=== PATIENT | female | born 1935 | race Caucasian/White ===

== ENCOUNTER 2016-03-13 12:56 | Inpatient (IN) | payer MEDICARE, BC ==
[~2016-03-13] VITALS: Ht 152.4 cm; Wt 58.9 kg
[~2016-03-13 12:56] MED LIST: ALBU8.5H3 INH; AMP500 PO; BUDE6HFA INHALATION; BUSP5TAB20 PO; DILT120C62 PO; KENC1 TOP; METF500T4 PO; METO50TA16 PO; NYST15PO4 TOP; OMEP40CA6 PO; ROSU5TAB5 PO; TIOT18CA INH; TRAZ50TA18 PO; VALS160T20 PO
[2016-03-13 12:59] VITALS: Ht 152.4 cm; Wt 58.9 kg
[2016-03-13] MEDS ORDERED: ASPIRIN 81 MG TAB PO STA (13:15)
[2016-03-13] MEDS ORDERED: METHYLPREDNISOLONE 125 MG INJ IV STA (13:15)
[2016-03-13] MEDS ORDERED: IPRATROPIUM (NEB) 0.5 MG/2.5 ML AMP INH STA (13:15)
[2016-03-13] MEDS ORDERED: FUROSEMIDE 100 MG INJ IV STA (13:15)
[2016-03-13] MEDS ORDERED: ALBUTEROL 0.5% (NEB) 2.5 MG/0.5 ML AMP INH STA (13:15)
[2016-03-13] MEDS ORDERED: FUROSEMIDE 40 MG INJ ONE (13:25)
[2016-03-13 13:33] LABS: BASOPHIL # 0.1 10^3/ul (0.0-0.1); BASOPHILS % 0.7 % (0.0-2.0); EOSINOPHILS # 0.1 10^3/ul (0.0-0.5); EOSINOPHILS % 1.6 % (0.0-7.0); HEMATOCRIT 36.4 % (37.0-47.0); LYMPHOCYTES # 1.6 10^3/ul (0.8-2.9); LYMPHOCYTES % 18.4 % (15.0-51.0); MEAN CORPUSCULAR HEMOGLOBIN 30.8 pg (29.0-33.0); MEAN CORPUSCULAR VOLUME 93.5 fl (82.0-101.0); MEAN PLATELET VOLUME 8.9 fl (7.4-10.4); MONOCYTE # 0.5 10^3/ul (0.3-0.9); MONOCYTES % 5.6 % (0.0-11.0); NEUTROPHIL # 6.2 10^3/ul (1.6-7.5); NEUTROPHILS % 73.7 % (39.0-77.0); PLATELET COUNT 256 10^3/UL (140-440); RED CELL DISTRIBUTION WIDTH 15.9 % (11.5-14.5); UNCORRECTED WBC 8.5 10^3/ul (4.8-10.8); WHITE BLOOD COUNT 8.5 10^3/ul (4.8-10.8)
[2016-03-13 13:37] LABS: CONDITION 1
[2016-03-13 13:38] LABS: LH ANALYZER COMMENTS 1
[2016-03-13 13:55] LABS: INR 0.86; PARTIAL THROMBOPLASTIN TIME 26.8 Sec (25.0-35.0); PROTIME 11.7 Sec (12.2-14.2); PT RATIO 0.9
[2016-03-13 13:56] LABS: ALBUMIN 4.2 g/dl (3.3-4.9)
[2016-03-13 13:57] LABS: CHLORIDE 84 mmol/L (97-110); POTASSIUM 5.2 mmol/L (3.5-5.1); SODIUM 133 mmol/L (135-144)
[2016-03-13 13:59] LABS: ALBUMIN/GLOBULIN RATIO 1.35; ASPARTATE AMINO TRANSFERASE 25 IU/L (15-46); BILIRUBIN,INDIRECT 0.8 mg/dl (0-1.1); BILIRUBIN,TOTAL 0.8 mg/dl (0.2-1.3); BLOOD UREA NITROGEN 15 mg/dl (7-20); CREATININE 0.65 mg/dl (0.44-1.00); TOTAL PROTEIN 7.3 g/dl (6.1-8.1)
[2016-03-13 14:00] LABS: ALANINE AMINOTRANSFERASE 38 IU/L (13-69); ALKALINE PHOSPHATASE 73 IU/L (42-121); CALCIUM 9.2 mg/dl (8.4-10.2); GLUCOSE 131 mg/dl (70-220)
[2016-03-13 14:00] LABS: AADO2 Arterial 56.6 mmHg (7.0-24.0); Allen Test ACCEPTAB; Arterial Base Excess 13.4 mmol/L (-3.0-3); Arterial COHb 0.5 % (0.0-3.0); Arterial Fraction of Oxyhgb 98.4 % (93.0-99.0); Arterial HCO3 42.8 mmol/L (22.0-26.0); Arterial MetHb 0.3 % (0.0-1.5); Arterial Total Hemglobin 13.1 g/dl (12.0-18.0)
[2016-03-13 14:09] LABS: B-TYPE NATRIURETIC PEPTIDE 758 PG/ML (0-450)
[2016-03-13 14:12] LABS: ANION GAP 15 (8-16); CARBON DIOXIDE 39 mmol/L (21-31); TROPONIN-I < 0.012 ng/ml (0.00-0.12)
--- NOTE | 2016-03-13 14:15 | RADRPT ---
PROCEDURE: XR Chest. CLINICAL INDICATION: Shortness of breath. TECHNIQUE: Single frontal view. COMPARISON: 12/14/2015. FINDINGS: The lungs are mildly hyperinflated but otherwise clear. The heart is mildly enlarged. There is calcification in the aorta consistent with atherosclerosis. There is no pleural effusion. There is no pneumothorax. IMPRESSION: 1. Mild hyperinflation. 2. Otherwise clear lungs. 3. Mild cardiomegaly. 4. Atherosclerosis. RPTAT: QQ .Dimitrios Delarosa MD, Date Time Electronically viewed and signed by .Dimitrios Delarosa MD, on 03/13/2016 14:14 .R/
--- NOTE | 2016-03-13 15:57 | ERA ---
ER Documentation Chief Complaint Date/Time DATE: 03/13/16 TIME: 15:51 Chief Complaint Complains of SOB, Hx of Asthma, Back pain and left arm pain HPI Patient comes in complaining of increasing shortness of breath over the last 2- 3 days. She has orthopnea with dyspnea on exertion. Her daughter states that one side of her lungs do not work at all. She has not had any swelling of the extremities. Denies any fever however she has had coughing with congestion. Denies any sputum production sore throat otalgia nausea vomiting or diarrhea. She has had some chest discomfort which she cannot quite describe. She is not oxygen dependent at home. She denies traveling anywhere or sick contacts. ROS All systems reviewed and are negative except as per history of present illness. Medications Home Meds Active Scripts Nystatin* (Nystop*) 15 Gm Powder, 1 APPLIC TOP BID for 7 Days Prov:GREGORIO LI 12/19/15 Triamcinolone Acetonide* (Kenalog*) 0.1%-15GM Cr, 1 APPLIC TOP BID for 7 Days Prov:GREGORIO LI 12/19/15 Albuterol Sulfate* (Proair HFA*) 8.5 Gm Hfa.aer.ad, 2 PUFF INH Q4H Y for WHEEZING AND SOB, #1 INHALER Prov:BRETT VARGAS V. UNDERTAKER HELPER 10/27/15 Tiotropium Aurora* (Spiriva*) 18 Mcg Cap.w.dev, 1 INH INH DAILY for 30 Days Prov:KITTY MORALES UNDERTAKER HELPER 08/02/15 Reported Medications Trazodone Hcl* (Trazodone Hcl*) 50 Mg Tablet, 50 MG PO QHS, #30 TAB 12/14/15 Diltiazem Hcl* (Cartia XT*) 120 Mg Cap.sr.24h, 120 MG PO DAILY, #30 CAP 12/14/15 Metoprolol Succinate* (Toprol XL*) 50 Mg Tab.er.24h, 50 MG PO BID, #30 TAB 12/14/15 Metformin* (Glucophage*) 500 Mg Tab, 500 MG PO WITH BREAKFAST DINNE, #30 TAB 12/14/15 Valsartan* (Diovan*) 160 Mg Tablet, 160 MG PO DAILY, TAB 12/14/15 Buspirone Hcl* (Buspirone Hcl*) 5 Mg Tab, 5 MG PO BID Y for PRN, TAB 12/14/15 Budesonide-Formoterol Fumarate* (Symbicort*) 160-4.5 Hfa.aer.ad, 2 PUFF INHALATION BID, #1 EACH 10/24/15 Rosuvastatin Calcium* (Crestor*) 5 Mg Tablet, 5 MG PO QHS, #30 TAB 06/28/15 Omeprazole* (Omeprazole*) 40 Mg Capsule.dr, 40 MG PO AC BREAKFAST, #30 CAP 06/28/15 Discontinued Scripts Ampicillin* (Ampicillin*) 500 Mg Cap, 500 MG PO TID for 3 Days, CAP Prov:GREGORIO LI 12/19/15 Allergies Allergies: Coded Allergies: No Known Allergy (Unverified , 10/24/15) PMhx/Soc History of Surgery: No Anesthesia Reaction: No Hx Neurological Disorder: No Hx Respiratory Disorders: Yes (asthma,pna) Hx Cardiac Disorders: Yes (htn,high chol) Hx Psychiatric Problems: No Hx Miscellaneous Medical Probl: Yes (hysterectomy, gallbladder, abdominal tumors (benign), asthma) Hx Alcohol Use: No Hx Substance Use: No Hx Tobacco Use: No Smoking Status: Never smoker FmHx I attempted to take the pt off her oxygen but her sats dropped to 74% and she had to be placed back on the oxygen. she has been urinating but refused the beasley so I am unsure how much she has actually diuresed. Family History: No diabetes Physical Exam Vitals Vital Signs Date Time Temp Pulse Resp B/P Pulse Ox O2 Delivery O2 Flow Rate FiO2 03/13/16 13:32 Nasal Cannula 03/13/16 13:27 4.0 03/13/16 13:27 82 20 98 Nasal Cannula 4.0 03/13/16 12:59 98.6 82 20 186/84 94 Physical Exam Const: [] Head: Atraumatic Eyes: Normal Conjunctiva ENT: Normal External Ears, Nose and Mouth. Neck: Full range of motion..~ No meningismus. Resp: Clear to auscultation bilaterally Cardio: Regular rate and rhythm, no murmurs Abd: Soft, non tender, non distended. Normal bowel sounds Skin: No petechiae or rashes Back: No midline or flank tenderness Ext: No cyanosis, or edema Neur: Awake and alert Psych: Normal Mood and Affect Result Diagram: 03/13/16 1320 03/13/16 1320 Results 24 hrs Laboratory Tests Test 03/13/16 13:15 03/13/16 13:20 Arterial Blood HCO3 42.8mmol/L Arterial Blood Base Excess 13.4mmol/L Arterial Blood Oxygen Saturation 99.2mmHG Kleber Test ACCEPTAB Arterial Blood Gas Puncture Site Right Radial Arterial Blood Carboxyhemoglobin 0.5% Arterial Blood Date Drawn 03/13/2016 1:50:26 PM Arterial Blood Methemoglobin 0.3% Arterial Blood pCO2 (Temp correct) 81.3mmhg Arterial Blood pH (Temp corrected) 7.339 Arterial Blood pO2 (Temp corrected) 230.4mmHG Blood Gas A-a O2 Differential 56.6mmHg Blood Gas Critical Value Read Back DR CARLOS Anthony Blood Gas Modality BEBULIZER Blood Gas Notified Time 03/13/2016 2:00:28 PM Blood Gas Notified Whom JLD Blood Gas Specimen Source Blood arterial Blood Gas Temperature 37.0C FiO2 53.0% Oxyhemoglobin Percent 98.4% Total Hemoglobin 13.1g/dl Activated Partial Thromboplast Time 26.8Sec Alanine Aminotransferase (ALT/SGPT) 38IU/L Albumin 4.2g/dl Albumin/Globulin Ratio 1.35 Alkaline Phosphatase 73IU/L Anion Gap 15 Aspartate Amino Transf (AST/SGOT) 25IU/L B-Type Natriuretic Peptide 758PG/ML Basophils # 0.110^3/ul Basophils % 0.7% Blood Morphology Comment Blood Urea Nitrogen 15mg/dl Calcium Level 9.2mg/dl Carbon Dioxide Level 39mmol/L Chloride Level 84mmol/L Creatinine 0.65mg/dl Direct Bilirubin 0.00mg/dl Eosinophils # 0.110^3/ul Eosinophils % 1.6% Globulin 3.10g/dl Glucose Level 131mg/dl Hematocrit 36.4% Hemoglobin 12.0g/dl INR International Normalized Ratio 0.86 Indirect Bilirubin 0.8mg/dl Lactic Acid Level 1.8mmol/L Lymphocytes # 1.610^3/ul Lymphocytes % 18.4% Mean Corpuscular Hemoglobin 30.8pg Mean Corpuscular Hemoglobin Concent 33.0g/dl Mean Corpuscular Volume 93.5fl Mean Platelet Volume 8.9fl Monocytes # 0.510^3/ul Monocytes % 5.6% Neutrophils # 6.210^3/ul Neutrophils % 73.7% Nucleated Red Blood Cells # 0.010^3/ul Nucleated Red Blood Cells % 0.0/100WBC Platelet Count 00675^3/UL Potassium Level 5.2mmol/L Prothrombin Time 11.7Sec Prothrombin Time Ratio 0.9 Red Blood Count 3.9010^6/ul Red Cell Distribution Width 15.9% Sodium Level 133mmol/L Total Bilirubin 0.8mg/dl Total Protein 7.3g/dl Troponin I < 0.012ng/ml White Blood Count 8.510^3/ul Current Medications Medications (Trade) Dose Ordered Sig/Liza Route PRN Reason Start Time Stop Time Status Last Admin Dose Admin Albuterol (Proventil 0.5% (Neb)) 7.5 mg ONCE STAT INH 03/13/16 13:15 03/13/16 13:20 DC 03/13/16 13:27 Ipratropium Aurora (Atrovent 0.02% (Neb)) 1.5 mg ONCE STAT INH 03/13/16 13:15 03/13/16 13:20 DC 03/13/16 13:27 Methylprednisolone Sodium Succinate (Solu-Medrol) 125 mg ONCE STAT IV 03/13/16 13:15 03/13/16 13:20 DC 03/13/16 13:26 Aspirin (Aspirin) 162 mg ONCE STAT PO 03/13/16 13:15 03/13/16 13:20 DC 03/13/16 13:26 Furosemide (Lasix) 80 mg ONCE STAT IV 03/13/16 13:15 03/13/16 13:20 DC 03/13/16 13:24 Furosemide (Lasix) 40 mg STK-MED ONCE .ROUTE 03/13/16 13:25 03/13/16 13:26 DC Ondansetron HCl (Zofran Inj) 4 mg ER BRIDGE PRN IV NAUSEA AND/OR VOMITING 03/13/16 16:30 03/14/16 16:29 Acetaminophen (Tylenol Tab) 650 mg ER BRIDGE PRN PO MILD PAIN/FEVER 03/13/16 16:30 03/14/16 16:29 Departure Diagnosis: Primary Impression: COPD with exacerbation Additional Impressions: CHF exacerbation Qualified Code: I50.9 - Acute on chronic congestive heart failure, unspecified congestive heart failure type Hypoxia Shortness of breath Condition: YONI Glass Mar 13, 2016 15:57
[2016-03-13] MEDS ORDERED: ACETAMINOPHEN 325 MG TAB PO PRN (16:30)
[2016-03-13] MEDS ORDERED: ONDANSETRON 4 MG INJ IV PRN ×2 (16:30→17:30)
[2016-03-13] MEDS: HYDROCODONE/APAP (5/325) TAB PO PRN ×2 (17:27→18:53)
[2016-03-13] MEDS ORDERED: hydrALAzine 20 MG INJ IV PRN (17:30)
[2016-03-13] MEDS ORDERED: BISACODYL (EC) 5 MG TAB PO PRN (17:30)
[2016-03-13] MEDS ORDERED: MAGNESIUM HYDROXIDE 30ML CUP PO PRN (17:30)
[2016-03-13] MEDS ORDERED: morphine 2 MG INJ IV PRN (17:30)
[2016-03-13] MEDS ORDERED: NACL 0.9% 3 ML SYG IV SCH (17:30)
[2016-03-13] MEDS ORDERED: ALBUTEROL/IPRATROPIUM (NEB) 3 ML AMP HHN PRN (17:30)
[2016-03-13] MEDS: CEFTRIAXONE 1 GM/50 ML (PMX) 50 ML IV SCH (17:40)
[2016-03-13] MEDS: AZITHROMYCIN 500MG/NS (PMX) 250 ML IV SCH (18:10)
[2016-03-13] MEDS: METHYLPREDNISOLONE 125 MG INJ IV SCH (18:10)
--- NOTE | 2016-03-13 18:29 | HP ---
DATE OF ADMISSION: 03/13/2016 TIME OF EVALUATION: 1700. REASON FOR ADMISSION: Dyspnea. CONSULTANTS: . Dr. Hollis Greene, pulmonary. HISTORY OF PRESENT ILLNESS: This is an 80-year-old female with past medical history of COPD who uses home oxygen, hypercapnia, paroxysmal atrial fibrillation, essential hypertension, pulmonary hypertension, prediabetes, dyslipidemia as well as abdominal and thoracic aortic aneurysm, who came to the emergency room with chief complaint of shortness of breath that has been going on over the past 2 to 3 days. The patient also verbalized left-sided chest wall pain that is radiating to the left and thoracic spine. She was complaining of orthopnea and dyspnea with minimal exertion. She denied any cough, fevers, or chills. Denied any recent sick contacts or recent travels. The patient denied any nausea, vomiting, abdominal pain, diarrhea, hematuria, dysuria, hematemesis, hematochezia or melena. The patient verbalized that she has been compliant with all her medications at home. Nevertheless, the patient was noticed to have a blood pressure of 186/84 in the emergency room. The patient's ABG that was done on 50% FIO2 showed a pCO2 of 81.3 with a pH of 7.339. The patient's BMP showed minimal hyperkalemia. The patient's chest x- ray showed mild hyperinflation, otherwise clear lungs as well as mild cardiomegaly. The patient was treated with 125 mg IV Solu-Medrol, 80 mg IV Lasix and 162 mg of oral aspirin in the emergency room along with inhaled bronchodilators. PAST MEDICAL HISTORY: COPD, dependent on home oxygen, hypercapnia, paroxysmal atrial fibrillation, essential hypertension, prediabetes, dyslipidemia, pulmonary hypertension, abdominal and thoracic aortic aneurysm. 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 HOME MEDICATIONS: 1. ProAir HFA 2 puffs inhaled q. 4 hours p.r.n. dyspnea. 2. Spiriva 18 mcg capsule 1 inhalation daily. 3. Diltiazem 120 mg p.o. daily. 4. Toprol-XL 50 mg p.o. daily. 5. Crestor 5 mg p.o. at bedtime. 6. Diovan 160 mg p.o. daily. 7. Buspirone 5 mg p.o. b.i.d. p.r.n. anxiety. 8. Trazodone 50 mg p.o. at bedtime. 9. Symbicort 160/4.5 two puffs inhaled b.i.d. 10. Omeprazole 40 mg p.o. before breakfast. 11. Metformin 500 mg p.o. with breakfast and dinner. ALLERGIES: NO KNOWN DRUG ALLERGIES. SOCIAL HISTORY: The patient lives at home with her family. The patient used to be a smoker. As per the patient's family, she quit smoking a few months ago. Denies any use of alcohol or illicit drugs. REVIEW OF SYSTEMS: A 12-point review of systems was negative other than what is mentioned in history of present illness. PHYSICAL EXAMINATION: VITAL SIGNS: Temperature 98.6, pulse rate 82, respiratory rate 20, blood pressure 186/84, oxygen saturation 94% on 4 liters oxygen via nasal cannula. GENERAL: This is an elderly 80-year-old female lying in bed in mild to moderate respiratory distress, doing pursed lip breathing. HEENT: Head normocephalic and atraumatic. Eyes: Anicteric sclerae. Conjunctivae clear. ENT: Nasal septum is midline. Oral mucosa is dry. NECK: Supple. No JVD noticed. RESPIRATORY: Bilaterally diminished breath sounds. Use of accessory muscles of respiration. CARDIAC: Regular rate and rhythm. No obvious murmurs heard. ABDOMEN: Soft, nontender and nondistended. Bowel sounds positive in all 4 quadrants. GENITOURINARY: Deferred. EXTREMITIES: No cyanosis. Clubbing of fingers of the bilateral upper extremities. NEUROLOGIC: The patient is awake, alert and oriented. Cranial nerves are grossly intact. LABORATORY AND DIAGNOSTIC DATA: WBC 8.5, hemoglobin 12.0, hematocrit 36.4, platelet count 256. Sodium 133, potassium 5.2, chloride 84, carbon dioxide 30, anion gap 15, BUN 15, creatinine 0.6, glucose 131. Lactic acid 1.8, calcium 9.2 , AST 25, ALT 30, alkaline phosphatase 73. BNP is 758. Troponin I less than 0.01. Total protein 7.3, albumin 4.2. PT 11.7, INR 0.863, PTT 26.8. Blood gas that was done on 50% FIO2 0.339, pCO2 81.3, pO2 230.4, bicarbonate of 42.8, oxygen saturation 99.2, base excess of 13.4. Chest x-ray: Mild hyperinflation. Otherwise, clear lungs. Mild cardiomegaly. Atherosclerosis . IMPRESSION: This is an 80-year-old female with known history of COPD who uses home O2, who came to the emergency room with chief complaint of worsening dyspnea with evidence of COPD exacerbation and will be admitted here for further treatment and evaluation. ASSESSMENT AND PLAN: 1. Acute on chronic respiratory failure, hypoxic and hypercapnic. Most probably secondary to chronic obstructive pulmonary disease exacerbation. The patient will be provided with adequate inhaled bronchodilators. She will be maintained on supplemental oxygen. Pulmonary consult will be obtained. 2. Chronic obstructive pulmonary disease exacerbation. The patient will be maintained on inhaled bronchodilators. The patient will be started on a tapering dose of IV steroids. She will also be started on empiric antibiotics for any underlying acute tracheobronchitis that might have triggered the patient 's chronic obstructive pulmonary disease exacerbation. As mentioned earlier, pulmonary will follow the patient. 3. Diastolic heart failure, acute on chronic. The patient will be adequately diuresed. The patient will be ruled out for any underlying acute coronary syndrome. 4. Left-sided chest wall pain. Etiology unclear. The patient will be ruled out for any acute coronary syndrome. No 2D echocardiogram will be ordered since the patient had a 2D echocardiogram in December 2015 that showed preserved left ventricular ejection fraction with diastolic dysfunction. 5. Pulmonary hypertension. The patient will be maintained on supplemental oxygen. The patient's pulmonary hypertension could be most probably from chronic hypoxia. 6. Paroxysmal atrial fibrillation. Currently in sinus rhythm. The patient will be maintained on non-dihydropyridine calcium channel blockers. Beta blockers will be avoided because of the patient's underlying bronchospasms. 7. Accelerated hypertension. The patient's home antihypertensives will be resumed. However, beta blockers will be avoided because of underlying bronchospasm. The patient will also be started on p.r.n. antihypertensives for any systolic blood pressure readings greater than 160 mmHg. 8. Thoracic and abdominal aortic aneurysm. The patient's blood pressure will be tightly controlled to avoid any dissection of aneurysm. 9. Pre-diabetes. The patient's metformin will be resumed. Hemoglobin A1c will be obtained to evaluate the blood glucose control over the past few weeks. 10. Dyslipidemia. The patient's statins will be resumed. A fasting lipid panel will be obtained. Plan: The patient will be admitted to inpatient telemetry floor. The patient will be started on a carbohydrate controlled low cholesterol diet. She will be started on DVT prophylaxis and gastrointestinal prophylaxis. The patient will remain a FULL CODE. Activities will be with assist. The rest of the patient's management will be based on the clinical course, the results of the diagnostic studies, and inputs from consultants. Based on the patient's clinical presentation, she most probably requires at least 2 midnights' stay for further management and evaluation of her clinical presentation. The case and management of this patient was fully discussed with Dr. Hastings. Approximately 60 minutes were spent on the history and physical on this patient. KITTY HASTINGS MD AM/NTS Conf#: [id number] DID#: [id number] CC: YONI GONZALEZ MD;*EndCC* MTDD
[2016-03-13] MEDS: metFORMIN 500 MG TAB PO SCH (19:09)
[2016-03-13] MEDS: DILTIAZEM (CD) 120 MG CAP PO SCH (19:42)
[2016-03-13] MEDS: BUSPIRONE 5 MG TAB PO PRN (19:42)
[2016-03-13] MEDS: traZODone 50 MG TAB PO SCH (19:42)
[2016-03-13] MEDS: SALMETEROL/FLUTICASONE 250/50 INHA INH SCH ×2 (19:48→22:31)
[2016-03-13 20:50] LABS: ADD UMIC YES; URINE BILIRUBIN (Dip) NEGATIVE (NEGATIVE); URINE BLOOD (Dip) TRACE (NEGATIVE); URINE COLOR LT. YELLOW (YELLOW); URINE GLUCOSE (Dip) NEGATIVE (NEGATIVE); URINE KETONES (Dip) NEGATIVE (NEGATIVE); URINE LEUKOCYTE ESTERASE (Dip) NEGATIVE (NEGATIVE); URINE NITRITE (Dip) NEGATIVE (NEGATIVE); URINE TOTAL PROTEIN (Dip) NEGATIVE (NEGATIVE); URINE UROBILINOGEN (Dip) 0.2 E.U./dL (0.1-1.0)
[2016-03-13 21:03] LABS: BACTERIA,URINE FEW; SQUAMOUS EPITHELIAL CELL,UR RARE; URINE RBCS 0-2 /HPF (0)
[2016-03-13] MEDS: ALBUTEROL/IPRATROPIUM (NEB) 3 ML AMP HHN SCH (21:42)
[2016-03-13] MEDS: FAMOTIDINE 20 MG TAB PO SCH (22:31)
[2016-03-13] MEDS: ATORVASTATIN 20 MG TAB PO SCH (22:32)
[2016-03-14] MEDS: METHYLPREDNISOLONE 125 MG INJ IV SCH ×5 (02:13→23:41)
[2016-03-14 06:39] LABS: HEMATOCRIT 35.5 % (37.0-47.0); HEMOGLOBIN 11.9 g/dl (12.0-16.0); LYMPHOCYTES # 0.6 10^3/ul (0.8-2.9); MEAN CORPUSCULAR HEMOGLOBIN 31.3 pg (29.0-33.0); MEAN CORPUSCULAR HGB CONC 33.7 g/dl (32.0-37.0); MEAN CORPUSCULAR VOLUME 93.1 fl (82.0-101.0); MEAN PLATELET VOLUME 9.2 fl (7.4-10.4); MONOCYTE # 0.1 10^3/ul (0.3-0.9); MONOCYTES % 1.9 % (0.0-11.0); NEUTROPHIL # 4.4 10^3/ul (1.6-7.5); NEUTROPHILS % 87.1 % (39.0-77.0); PLATELET COUNT 241 10^3/UL (140-440); RED BLOOD COUNT 3.81 10^6/ul (4.20-5.40); RED CELL DISTRIBUTION WIDTH 15.4 % (11.5-14.5)
[2016-03-14 06:47] LABS: CONDITION 1; LH ANALYZER COMMENTS 1
[2016-03-14 06:52] LABS: ALBUMIN 4.3 g/dl (3.3-4.9)
[2016-03-14 06:53] LABS: POTASSIUM 4.3 mmol/L (3.5-5.1)
[2016-03-14 06:55] LABS: ALBUMIN/GLOBULIN RATIO 1.43; BILIRUBIN,INDIRECT 0.7 mg/dl (0-1.1); BILIRUBIN,TOTAL 0.7 mg/dl (0.2-1.3); CREATININE 0.73 mg/dl (0.44-1.00); TOTAL PROTEIN 7.3 g/dl (6.1-8.1)
[2016-03-14 06:56] LABS: CALCIUM 9.2 mg/dl (8.4-10.2)
[2016-03-14 07:25] LABS: CHOL/HDL RATIO 3.5 RATIO; MAGNESIUM 1.5 mg/dl (1.7-2.5); PHOSPHORUS 3.7 mg/dl (2.5-4.9)
[2016-03-14 07:39] LABS: TROPONIN-I 0.013 ng/ml (0.00-0.12)
[2016-03-14 07:56] LABS: THYROID STIMULATING HORMONE 0.332 MIU/L (0.465-4.680)
[2016-03-14] MEDS: metFORMIN 500 MG TAB PO SCH ×2 (08:21→17:42)
[2016-03-14] MEDS: SALMETEROL/FLUTICASONE 250/50 INHA INH SCH ×3 (09:00→21:38)
[2016-03-14] MEDS: FUROSEMIDE 20 MG INJ IV SCH (09:07)
[2016-03-14] MEDS: VALSARTAN 160 MG TAB PO SCH (09:08)
[2016-03-14] MEDS: FAMOTIDINE 20 MG TAB PO SCH (09:10)
[2016-03-14] MEDS: ENOXAPARIN 40 MG/0.4 ML SYG SC SCH (09:11)
[2016-03-14] MEDS: ALBUTEROL/IPRATROPIUM (NEB) 3 ML AMP HHN SCH ×2 (09:49→12:06)
[2016-03-14] MEDS ORDERED: LORAZEPAM 2 MG INJ IV ONE (10:00)
[2016-03-14 12:31] VITALS: BP 147/78; PULSE 107; RESP 18
[2016-03-14] MEDS: HYDROCODONE/APAP (5/325) TAB PO PRN (13:23)
[2016-03-14] MEDS ORDERED: MAGNESIUM SULFATE 3 GM in SOD CHLORIDE 0.9% 100 ML IVPB ONE (14:00)
--- NOTE | 2016-03-14 14:08 | PN ---
Date/Time of Note Date/Time of Note DATE: 03/14/16 TIME: 14:07 Assessment/Plan VTE Prophylaxis VTE Prophylaxis Intervention: LMWH Lines/Catheters IV [facility]from [facility] [place] Assessment/Plan Chief Complaint/Hosp Course 1. Acute on chronic respiratory failure, hypoxic and hypercapnic, most probably secondary to chronic obstructive pulmonary disease exacerbation. The patient will be provided inhaled bronchodilators. She will be maintained on supplemental oxygen. Pulmonary evaluation pending. 2. Chronic obstructive pulmonary disease exacerbation. The patient will be maintained on inhaled bronchodilators. The patient will be maintained on tapering dose of IV steroids. Continue empiric antibiotics for any underlying acute tracheobronchitis. 3. Diastolic heart failure, acute on chronic. The patient will be adequately diuresed. Troponins 2 negative. 4. Left-sided chest wall pain. Etiology unclear. Troponins 2 negative. Continue analgesics. 5. Pulmonary hypertension. The patient will be maintained on supplemental oxygen. 6. Paroxysmal atrial fibrillation. Currently in sinus rhythm. The patient will be maintained on non-dihydropyridine calcium channel blockers. Beta blockers will be avoided because of the patient's underlying bronchospasms . 7. Accelerated hypertension. The patient will be continued on routine antihypertensives. However, beta blockers will be avoided because of underlying bronchospasm. The patient will also be maintained on p.r.n. antihypertensives for any systolic blood pressure readings greater than 160 mmHg. 8. Thoracic and abdominal aortic aneurysm. The patient's blood pressure will be tightly controlled to avoid any dissection of aneurysm. 9. Pre-diabetes. Currently hemoglobin A1c 5.2. The patient will be maintained on metformin. 11. Dyslipidemia. Continue statins. Fasting lipid panel optimal. 12. Hypomagnesemia. Replete. 13. Fluids, electrolytes, and nutrition. Carbohydrate controlled, low- cholesterol diet. 14. DVT prophylaxis. Subcutaneous Lovenox. 15. Gastrointestinal prophylaxis. Histamine 2 receptor blockers. 16. Plan. Continue antibiotics. Continue inhaled bronchodilators. Continue tapering dose of steroids. Replete magnesium. Case discussed with Dr. Hastings. Problems: Subjective 24 Hr Interval Summary Free Text/Dictation Complains of left chest wall and left shoulder pain. Exam/Review of Systems Vital Signs Vitals Vital Signs Date Time Temp Pulse Resp B/P Pulse Ox O2 Delivery O2 Flow Rate FiO2 03/14/16 13:09 Nasal Cannula 2.0 03/14/16 12:31 98.1 107 18 147/78 93 03/13/16 21:40 28 Exam GENERAL: This is an elderly 80-year-old female lying in bed in mild to moderate respiratory distress, doing pursed lip breathing ____. HEENT: Head normocephalic and atraumatic. Eyes: Anicteric sclerae. Conjunctivae clear. ENT: Nasal septum is midline. Oral mucosa is dry. NECK: Supple. No JVD noticed. RESPIRATORY: Bilaterally diminished breath sounds. Use of accessory muscles of respiration. CARDIAC: Regular rate and rhythm. No obvious murmurs heard. ABDOMEN: Soft, nontender and nondistended. Bowel sounds positive in all 4 quadrants. GENITOURINARY: Deferred. EXTREMITIES: No cyanosis. Clubbing of fingers of the bilateral upper extremities. NEUROLOGIC: The patient is awake, alert and oriented. Cranial nerves are grossly intact. Results Result Diagram: 03/14/16 0532 03/14/16 0532 Results 24 hrs Laboratory Tests Test 03/13/16 19:05 03/13/16 20:00 03/14/16 05:32 Bedside Glucose 161 Urine Bacteria FEW Urine Bilirubin NEGATIVE Urine Clarity CLEAR Urine Color LT. YELLOW Urine Glucose NEGATIVE Urine Hemoglobin TRACE Urine Ketones NEGATIVE Urine Leukocyte Esterase NEGATIVE Urine Microscopic RBC 0-2 Urine Microscopic WBC NONE SEEN Urine Nitrite NEGATIVE Urine Specific [place] <=1.005 L Urine Squamous Epithelial Cells RARE Urine Total Protein NEGATIVE Urine Urobilinogen 0.2 E.U./dL Urine pH 6.0 Alanine Aminotransferase (ALT/SGPT) 38 Albumin 4.3 Albumin/Globulin Ratio 1.43 Alkaline Phosphatase 75 Anion Gap 16 Aspartate Amino Transf (AST/SGOT) 30 B-Type Natriuretic Peptide 808 H Basophils # 0.0 Basophils % 0.0 Blood Morphology Comment Blood Urea Nitrogen 21 H Calcium Level 9.2 Carbon Dioxide Level 39 H Chloride Level 82 L Cholesterol Level 153 Cholesterol/HDL Ratio 3.5 Creatinine 0.73 Direct Bilirubin 0.00 Eosinophils # 0.0 Eosinophils % 0.0 Free Thyroxine 1.43 Globulin 3.00 Glucose Level 202 HDL Cholesterol 43 Hematocrit 35.5 L Hemoglobin 11.9 L Hemoglobin A1c 5.2 Indirect Bilirubin 0.7 LDL Cholesterol, Calculated 95 Lymphocytes # 0.6 L Lymphocytes % 11.0 L Magnesium Level 1.5 L Mean Corpuscular Hemoglobin 31.3 Mean Corpuscular Hemoglobin Concent 33.7 Mean Corpuscular Volume 93.1 Mean Platelet Volume 9.2 Monocytes # 0.1 L Monocytes % 1.9 Neutrophils # 4.4 Neutrophils % 87.1 H Nucleated Red Blood Cells # 0.0 Nucleated Red Blood Cells % 0.0 Phosphorus Level 3.7 Platelet Count 241 Potassium Level 4.3 Red Blood Count 3.81 L Red Cell Distribution Width 15.4 H Sodium Level 134 L Thyroid Stimulating Hormone (TSH) 0.332 L Total Bilirubin 0.7 Total Protein 7.3 Triglycerides Level 73 Troponin I 0.013 White Blood Count 5.0 # Medications Medications Current Medications Hydralazine HCl (Apresoline) 10 mg Q6H PRN IV SBP>160; Start 03/13/16 at 17:30 Methylprednisolone Sodium Succinate 60 mg 60 mg Q6 IV Last administered on at 13:24; Admin Dose 60 MG; Start 03/13/16 at 18:00 Azithromycin 250 ml @ 250 mls/hr Q24H IV Last administered on 03/13/16at 18:10 ; Admin Dose 250 MLS/HR; Start 03/13/16 at 18:00 Ceftriaxone Sodium (Rocephin) 50 ml @ 100 mls/hr Q24H IV Last administered on 03/13/16at 17:40; Admin Dose 100 MLS/HR; Start 03/13/16 at 17:30 Ondansetron HCl (Zofran Inj) 4 mg Q6H PRN IV NAUSEA AND/OR VOMITING; Start at 17:30 Acetaminophen (Tylenol Tab) 650 mg Q6H PRN PO PAIN LEVEL 1-3 OR FEVER; Start 03/13/16 at 17:30 Acetaminophen/ Hydrocodone Bitart ([place] (5/325)) 1 tab Q6H PRN PO MODERATE PAIN LEVEL 4-6 Last administered on 03/14/16at 13:23; Admin Dose 1 TAB; Start 03/13/16 at 17:30 Famotidine (Pepcid) 20 mg DAILY PO Last administered on 03/14/16at 09:10; Admin Dose 20 MG; Start 03/13/16 at 21:00 Enoxaparin Sodium (Lovenox) 40 mg DAILY SC Last administered on 03/14/16at 09: 11; Admin Dose 40 MG; Start 03/14/16 at 09:00 Buspirone HCl (Buspar) 5 mg BID PRN PO ANXIETY Last administered on 03/13/16 19:42; Admin Dose 5 MG; Start 03/13/16 at 17:30 Diltiazem HCl (Cardizem Cd) 120 mg DAILY PO Last administered on 03/13/16 19: 42; Admin Dose 120 MG; Start 03/14/16 at 09:00 Trazodone HCl (Desyrel) 50 mg QHS PO Last administered on 03/13/16 19:42; Admin Dose 50 MG; Start 03/13/16 at 21:00 Valsartan (Diovan) 160 mg DAILY PO Last administered on 03/14/16 09:08; Admin Dose 160 MG; Start 03/14/16 at 09:00 Salmeterol Xinafoate/ Fluticasone (Advair 250/50 Diskus) 1 inh BID INH Last administered on 03/13/16at 19:48; Admin Dose 1 INH; Start 03/13/16 at 21:00 Atorvastatin Calcium (Lipitor) 20 mg QHS PO Last administered on 03/13/16at 22: 32; Admin Dose 20 MG; Start 03/13/16 at 21:00 Morphine Sulfate (morphine) 2 mg Q4H PRN IV SEVERE PAIN LEVEL 7-10; Start at 17:30 Magnesium Hydroxide (Milk Of Mag) 30 ml DAILY PRN PO CONSTIPATION; Start 03/13 at 17:30 Bisacodyl (Dulcolax) 5 mg DAILY PRN PO CONSTIPATION; Start 03/13/16 at 17:30 Salmeterol Xinafoate/ Fluticasone (Advair 250/50 Diskus) 1 inh BID INH Last administered on 03/14/16at 09:30; Admin Dose 1 INH; Start 03/13/16 at 21:00 Furosemide 20 mg 20 mg DAILY IV Last administered on 03/14/16 09:07; Admin Dose 20 MG; Start 03/14/16 at 09:00 Magnesium Sulfate/ Sodium Chloride (Magnesium Sulfate/NS) 106 ml @ 35.333 mls/ hr ONCE ONCE IVPB ; Start 03/14/16 at 14:00; Stop 03/14/16 at 16:59 KITTY MORALES NP Mar 14, 2016 14:08
[2016-03-14] MEDS ORDERED: DEXTROSE 50% 50 ML SYRINGE IV PRN ×2 (17:30)
[2016-03-14] MEDS ORDERED: GLUCAGON 1 MG INJ IM PRN (17:30)
[2016-03-14] MEDS ORDERED: GLUCOSE GEL 15 GRAM TUBE BUCCAL PRN (17:30)
[2016-03-14] MEDS ORDERED: GLUCOSE GEL 15 GRAM TUBE PO PRN ×2 (17:30)
[2016-03-14] MEDS: CEFTRIAXONE 1 GM/50 ML (PMX) 50 ML IV SCH (18:39)
[2016-03-14 20:00] VITALS: BP 157/69; PULSE 96; RESP 16
[2016-03-14] MEDS: MONTELUKAST 10 MG TAB PO SCH (20:49)
[2016-03-14] MEDS: ATORVASTATIN 20 MG TAB PO SCH (20:49)
[2016-03-14] MEDS: traZODone 50 MG TAB PO SCH (20:53)
[2016-03-14 21:00] VITALS: BP 135/65; PULSE 82
[2016-03-14] MEDS: AZITHROMYCIN 500MG/NS (PMX) 250 ML IV SCH (21:38)
[2016-03-14] MEDS: BUSPIRONE 5 MG TAB PO PRN (21:40)
[2016-03-15 05:27] LABS: BASOPHILS % 0.1 % (0.0-2.0); HEMATOCRIT 36.1 % (37.0-47.0); LYMPHOCYTES # 0.6 10^3/ul (0.8-2.9); LYMPHOCYTES % 7.1 % (15.0-51.0); MEAN CORPUSCULAR HEMOGLOBIN 30.9 pg (29.0-33.0); MEAN CORPUSCULAR HGB CONC 33.3 g/dl (32.0-37.0); MEAN CORPUSCULAR VOLUME 92.8 fl (82.0-101.0); MONOCYTE # 0.5 10^3/ul (0.3-0.9); MONOCYTES % 6.5 % (0.0-11.0); NEUTROPHIL # 6.9 10^3/ul (1.6-7.5); NEUTROPHILS % 86.3 % (39.0-77.0); PLATELET COUNT 234 10^3/UL (140-440); RED BLOOD COUNT 3.89 10^6/ul (4.20-5.40); RED CELL DISTRIBUTION WIDTH 15.1 % (11.5-14.5)
[2016-03-15] MEDS: METHYLPREDNISOLONE 125 MG INJ IV SCH (05:29)
[2016-03-15 05:35] LABS: MAGNESIUM 2.4 mg/dl (1.7-2.5); PHOSPHORUS 3.6 mg/dl (2.5-4.9)
[2016-03-15 05:36] LABS: CONDITION 1; LH ANALYZER COMMENTS 1
[2016-03-15 05:49] LABS: POTASSIUM 4.1 mmol/L (3.5-5.1)
[2016-03-15 05:51] LABS: CREATININE 0.66 mg/dl (0.44-1.00)
[2016-03-15] MEDS: HYDROCODONE/APAP (5/325) TAB PO PRN ×3 (06:39→20:24)
[2016-03-15 07:30] VITALS: BP 135/75; PULSE 95; RESP 18
[2016-03-15] MEDS: metFORMIN 500 MG TAB PO SCH (08:43)
[2016-03-15] MEDS: SALMETEROL/FLUTICASONE 250/50 INHA INH SCH ×2 (08:43→20:22)
[2016-03-15] MEDS: VALSARTAN 160 MG TAB PO SCH (08:44)
[2016-03-15] MEDS: FUROSEMIDE 20 MG INJ IV SCH (08:45)
[2016-03-15] MEDS: FAMOTIDINE 20 MG TAB PO SCH (08:45)
[2016-03-15] MEDS: DILTIAZEM (CD) 120 MG CAP PO SCH (08:45)
[2016-03-15] MEDS: ENOXAPARIN 40 MG/0.4 ML SYG SC SCH (08:46)
--- NOTE | 2016-03-15 10:01 | PN ---
Date/Time of Note Date/Time of Note DATE: 03/15/16 TIME: 10:00 Assessment/Plan VTE Prophylaxis VTE Prophylaxis Intervention: LMWH Lines/Catheters IV [facility]ter [facility] (from [facility]): Peripheral IV Assessment/Plan Chief Complaint/Hosp Course 1. Acute on chronic respiratory failure, hypoxic and hypercapnic, most probably secondary to chronic obstructive pulmonary disease exacerbation. The patient will be provided inhaled bronchodilators. She will be maintained on supplemental oxygen. 2. Chronic obstructive pulmonary disease exacerbation. The patient will be maintained on inhaled bronchodilators. The patient will be maintained on tapering dose of IV steroids. Continue empiric antibiotics for any underlying acute tracheobronchitis. 3. Diastolic heart failure, acute on chronic. The patient will be adequately diuresed. Troponins 2 negative. 4. Left-sided chest wall pain. Etiology unclear. Troponins 2 negative. Continue analgesics. 5. Pulmonary hypertension. The patient will be maintained on supplemental oxygen. 6. Paroxysmal atrial fibrillation. Currently in sinus rhythm. The patient will be maintained on non-dihydropyridine calcium channel blockers. Beta blockers will be avoided because of the patient's underlying bronchospasms . 7. Accelerated hypertension. The patient will be continued on routine antihypertensives. However, beta blockers will be avoided because of underlying bronchospasm. The patient will also be maintained on p.r.n. antihypertensives for any systolic blood pressure readings greater than 160 mmHg. 8. 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 The patient' s blood pressure will be tightly controlled to avoid any dissection of aneurysm. 9. Pre-diabetes. Currently hemoglobin A1c 5.2. The patient will be maintained on metformin. 11. Dyslipidemia. Continue statins. Fasting lipid panel optimal. 12. Abdominal pain. Will obtain a CT scan of the abdomen with contrast, since the patient has history of AAA. 13. Fluids, electrolytes, and nutrition. Carbohydrate controlled, low- cholesterol diet. 14. DVT prophylaxis. Subcutaneous Lovenox. 15. Gastrointestinal prophylaxis. Histamine 2 receptor blockers. 16. Plan. Continue antibiotics. Continue inhaled bronchodilators. Continue tapering dose of steroids. Obtain CT of the abdomen and chest. Case discussed with Dr. Hastings. Problems: Subjective 24 Hr Interval Summary Free Text/Dictation Complains of abdominal pain and sore throat. Exam/Review of Systems Vital Signs Vitals Vital Signs Date Time Temp Pulse Resp B/P Pulse Ox O2 Delivery O2 Flow Rate FiO2 12/30/16 21:00 82 135/65 03/14/16 20:00 98.4 16 94 Nasal Cannula 2.0 03/13/16 21:40 28 Intake and Output 03/14/16 03/14/16 03/15/16 15:00 23:00 07:00 Intake Total 526 ml 426 ml Balance 526 ml 426 ml Exam GENERAL: This is an elderly 80-year-old female lying in bed in mild to moderate respiratory distress, doing pursed lip breathing ____. HEENT: Head normocephalic and atraumatic. Eyes: Anicteric sclerae. Conjunctivae clear. ENT: Nasal septum is midline. Oral mucosa is dry. NECK: Supple. No JVD noticed. RESPIRATORY: Bilaterally diminished breath sounds. Use of accessory muscles of respiration. CARDIAC: Regular rate and rhythm. No obvious murmurs heard. ABDOMEN: Soft, nontender and nondistended. Bowel sounds positive in all 4 quadrants. GENITOURINARY: Deferred. EXTREMITIES: No cyanosis. Clubbing of fingers of the bilateral upper extremities. NEUROLOGIC: The patient is awake, alert and oriented. Cranial nerves are grossly intact. Results Result Diagram: 03/15/16 0441 03/15/16 0440 Results 24 hrs Laboratory Tests Test 03/15/16 04:40 03/15/16 04:41 Anion Gap 16 Blood Urea Nitrogen 26 H Calcium Level 9.0 Carbon Dioxide Level 40 H Chloride Level 83 L Creatinine 0.66 Glucose Level 152 Potassium Level 4.1 Sodium Level 135 Basophils # 0.0 Basophils % 0.1 Blood Morphology Comment Eosinophils # 0.0 Eosinophils % 0.0 Hematocrit 36.1 L Hemoglobin 12.0 Lymphocytes # 0.6 L Lymphocytes % 7.1 L Magnesium Level 2.4 Mean Corpuscular Hemoglobin 30.9 Mean Corpuscular Hemoglobin Concent 33.3 Mean Corpuscular Volume 92.8 Mean Platelet Volume 9.0 Monocytes # 0.5 Monocytes % 6.5 Neutrophils # 6.9 Neutrophils % 86.3 H Nucleated Red Blood Cells # 0.0 Nucleated Red Blood Cells % 0.0 Phosphorus Level 3.6 Platelet Count 234 Red Blood Count 3.89 L Red Cell Distribution Width 15.1 H White Blood Count 8.0 # Medications Medications Current Medications Hydralazine HCl 10 mg 10 mg Q6H PRN IV SBP>160; Start 03/13/16 at 17:30 Azithromycin 250 ml @ 250 mls/hr Q24H IV Last administered on 03/14/16 21:38 ; Admin Dose 250 MLS/HR; Start 03/13/16 at 18:00 Ceftriaxone Sodium (Rocephin) 50 ml @ 100 mls/hr Q24H IV Last administered on 03/14/16 18:39; Admin Dose 100 MLS/HR; Start 03/13/16 at 17:30 Ondansetron HCl (Zofran Inj) 4 mg Q6H PRN IV NAUSEA AND/OR VOMITING; Start at 17:30 Acetaminophen (Tylenol Tab) 650 mg Q6H PRN PO PAIN LEVEL 1-3 OR FEVER; Start 03/13/16 at 17:30 Acetaminophen/ Hydrocodone Bitart ([place] (5/325)) 1 tab Q6H PRN PO MODERATE PAIN LEVEL 4-6 Last administered on 03/15/16 06:39; Admin Dose 1 TAB; Start 03/13/16 at 17:30 Famotidine (Pepcid) 20 mg DAILY PO Last administered on 03/15/16 08:45; Admin Dose 20 MG; Start 03/13/16 at 21:00 Enoxaparin Sodium (Lovenox) 40 mg DAILY SC Last administered on 03/15/16 08: 46; Admin Dose 40 MG; Start 03/14/16 at 09:00 Buspirone HCl (Buspar) 5 mg BID PRN PO ANXIETY Last administered on 03/14/16 21:40; Admin Dose 5 MG; Start 03/13/16 at 17:30 Diltiazem HCl (Cardizem Cd) 120 mg DAILY PO Last administered on 03/15/16 08: 45; Admin Dose 120 MG; Start 03/14/16 at 09:00 Trazodone HCl (Desyrel) 50 mg QHS PO Last administered on 03/14/16 20:53; Admin Dose 50 MG; Start 03/13/16 at 21:00 Valsartan (Diovan) 160 mg DAILY PO Last administered on 03/15/16 08:44; Admin Dose 160 MG; Start 03/14/16 at 09:00 Atorvastatin Calcium (Lipitor) 20 mg QHS PO Last administered on 12/30/16at 20: 49; Admin Dose 20 MG; Start 03/13/16 at 21:00 Morphine Sulfate (morphine) 2 mg Q4H PRN IV SEVERE PAIN LEVEL 7-10; Start at 17:30 Magnesium Hydroxide (Milk Of Mag) 30 ml DAILY PRN PO CONSTIPATION; Start 03/13 at 17:30 Bisacodyl (Dulcolax) 5 mg DAILY PRN PO CONSTIPATION; Start 03/13/16 at 17:30 Salmeterol Xinafoate/ Fluticasone (Advair 250/50 Diskus) 1 inh BID INH Last administered on 03/15/16at 08:43; Admin Dose 1 INH; Start 03/13/16 at 21:00 Furosemide (Lasix) 20 mg DAILY IV Last administered on 03/15/16at 08:45; Admin Dose 20 MG; Start 03/14/16 at 09:00 Montelukast Sodium (Singulair) 10 mg HS PO Last administered on 03/14/16at 20: 49; Admin Dose 10 MG; Start 03/14/16 at 21:00 Miscellaneous Information 1 ea NOTE XX ; Start 03/14/16 at 17:30 Glucose (Glutose) 15 gm Q15M PRN PO DECREASED GLUCOSE; Start 03/14/16 at 17:30 Glucose (Glutose) 22.5 gm Q15M PRN PO DECREASED GLUCOSE; Start 03/14/16 at 17: 30 Dextrose (D50w Syringe) 25 ml Q15M PRN IV DECREASED GLUCOSE; Start 03/14/16 at 17:30 Dextrose (D50w Syringe) 50 ml Q15M PRN IV DECREASED GLUCOSE; Start 03/14/16 at 17:30 Glucagon (Glucagen) 1 mg Q15M PRN IM DECREASED GLUCOSE; Start 03/14/16 at 17: 30 Glucose (Glutose) 15 gm Q15M PRN BUCCAL DECREASED GLUCOSE; Start 03/14/16 at 17:30 Methylprednisolone Sodium Succinate (Solu-Medrol) 40 mg Q8 IV ; Start 03/15/16 at 14:00; Status KITTY HERRERA NP Mar 15, 2016 10:01
[2016-03-15] MEDS: BUSPIRONE 5 MG TAB PO PRN ×2 (10:23→16:02)
[2016-03-15] MEDS: CEPASTAT LOZENGE MT PRN ×2 (11:36→20:23)
[2016-03-15] MEDS ORDERED: SOD CHLORIDE 0.9% 100 ML ONE (12:12)
[2016-03-15] MEDS ORDERED: IOHEXOL 100 ML ONE (12:12)
[2016-03-15] MEDS ORDERED: IOHEXOL 350MG/ML 50 ML BTL ONE (12:13)
[2016-03-15 12:19] LABS: CK-MB 1.6 ng/ml (0.0-2.4)
[2016-03-15 12:23] LABS: TROPONIN-I 0.019 ng/ml (0.00-0.12)
[2016-03-15] MEDS: METHYLPREDNISOLONE 40 MG INJ IV SCH ×2 (13:31→21:44)
[2016-03-15] MEDS: ACETAMINOPHEN 325 MG TAB PO PRN (16:02)
[2016-03-15] MEDS: ALBUTEROL/IPRATROPIUM (NEB) 3 ML AMP HHN SCH ×2 (16:47→20:09)
[2016-03-15] MEDS: CEFTRIAXONE 1 GM/50 ML (PMX) 50 ML IV SCH (16:55)
--- NOTE | 2016-03-15 17:38 | RADRPT ---
PROCEDURE: CT Angioram Chest, Abdomen and Pelvis with contrast. CLINICAL INDICATION: Chest pain, shortness of breath, history of abdominal aortic aneurysm TECHNIQUE: CT scan of the chest, abdomen, and pelvis was performed in the arterial phase of contra st enhancement on a multi-detector high-resolution CT scanner. The patient was scanned following th e uncomplicated intravenous administration of 110 cc of Omnipaque 350 intravenous contrast. Coronal and sagittal reformatted images were obtained from the axial source images. Images were reviewed on a high-resolution PACS workstation. The total exam CTDI equals 8.4 mGy and the total exam DLP equal s 562 mGy-cm. COMPARISON: None available FINDINGS: CT Angiogram: The heart size is normal. There is no evidence of pericardial effusion. No atherosclerotic calcifications of the coronary arteries and aorta are noted. The main pulmonary artery measures 33 mm. There are no filling defects within pulmonary arteries to suggest pulmonary embolism. There are moderate scattered atherosclerotic plaque seen throughout the aorta and iliac arteries. The thoracic and upper abdominal aorta are normal in diameter. There is a 3.7 cm fusiform infrarenal abdominal aortic aneurysm. There is mural thrombus along the lateral margin of the aneurysmal segment which measures up to 1.1 cm in thickness. There is no evidence of aortic dissection. There is atherosclerotic calcification at the origin of the celiac artery and superior mesenteric ar miladis. There is no evidence of stenosis of the celiac or superior mesenteric artery. There is atherosclerotic calcification at the origin of the renal arteries. There is no evidence of stenosis of the renal arteries. The aortic bifurcation appears normal. There is aneurysmal dilation of the right common iliac artery, measuring 1.7 cm. The visualized portions of common femoral arteries and superficial femoral arteries are unremarkable . CT chest: There are changes of centrolobular emphysema throughout both lungs with upper lobe predominance. The lungs are clear. There is no effusion or pneumothorax. There is no evidence of mediastinal mass or lymphadenopathy. The axillary regions, subpectoral regions, and supraclavicular regions are unremarkable. CT abdomen: The liver, spleen, stomach, pancreas and adrenal glands are unremarkable. The gallbladder is surgically absent.. There is compensatory dilatation of the common bile duct up to 1.5 cm. There is no evidence of intrahepatic biliary ductal dilatation. The kidneys are symmetric in size and shape. There is no renal calculus, renal mass, hydronephrosis or hydroureter. The bowel and mesentery are unremarkable. There is no free fluid or free air. There is no lymphadenopathy. There is a 1.4 cm periumbilical cyst with small internal calcification CT pelvis: The pelvic organs are normal. The pelvic sidewalls and inguinal regions are clear. The sigmoid colon and rectum are unremarkable. The osseous structures are remarkable for advanced degenerative spondylosis of the spine. IMPRESSION: 1. No evidence of aortic aortic dissection, pulmonary embolism or arterial thrombosis. 2. 3.7 cm infrarenal abdominal aortic aneurysm with up to 1.1 cm of mural thrombus. No evidence of aneurysm leak. 3. 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 4. Advanced atherosclerotic peripheral vascular disease. 5. Dilated main pulmonary artery, suggesting pulmonary artery hypertension. 6. Moderate changes of centrolobular emphysema of the lungs. RPTAT: QQ .Santos Norwood MD, MD Date Time Electronically viewed and signed by .Santos Norwood MD, on 03/15/2016 17:38 .M/
[2016-03-15] MEDS: AZITHROMYCIN 500MG/NS (PMX) 250 ML IV SCH (17:41)
--- NOTE | 2016-03-15 18:39 | CONS ---
DATE OF ADMISSION: 03/13/2016 DATE OF CONSULTATION: 03/15/2016 TYPE OF CONSULTATION: Pulmonary. REASON FOR CONSULTATION: Shortness of breath. Thank you, Dr. Miranda, for this consultation. HISTORY OF PRESENT ILLNESS: This is an 80-year-old lady with history of coronary artery bypass maryam t, COPD on home O2, pulmonary hypertension, hyperlipidemia, and thoracic aneurysm who came in with a several-day history of increasing shortness of breath, orthopnea, PND. No fever, no chills, no cou gh or sputum production, no recent travel history. No hemoptysis or hematemesis. Initially she had evidence of compensated hypercapnia, started on steroids, antibiotics and bronchodilators. PAST MEDICAL HISTORY: As above. MEDICATIONS: Per chart. ALLERGIES: NONE. SOCIAL HISTORY: Ex-smoker, no alcohol, no history of drug use. FAMILY HISTORY: Noncontributory. SYSTEMS REVIEW: A 12-point review of systems was negative other than that mentioned above. PHYSICAL EXAMINATION: GENERAL: Elderly lady, comfortable at rest, no acute distress. VITAL SIGNS: Temperature 98, pulse ____, blood pressure 135/75, O2 saturation 96% on 2 liters. NECK: Supple. No JVD or lymphadenopathy. CARDIAC: S1, S2, no added sounds or murmurs. CHEST: Barrel shaped, diminished air entry both lung bases. ABDOMEN: Soft, nontender, no guarding, no rebound. EXTREMITIES: No cyanosis, clubbing, 1+ edema. NEUROLOGIC: Generalized weakness. LABORATORY DATA: White count 8.0, hemoglobin 12, platelets 234. BUN 26, creatinine 0.66. INR 0.8. IMPRESSION AND PLAN: 1. Possible chronic obstructive pulmonary disease with exacerbation. 2. Questionable underlying early interstitial lung disease. 3. Chronic hypoxemia. PLAN: 1. Continue steroids. 2. Bronchodilators. 3. Agree with CT chest. 4. DVT and GI prophylaxis. 5. Outpatient pulmonary function tests and follow up with me in the office for continuing care. Dictated By: YURI BATES/HAILEE Conf#: [id number] DID#: [id number]
[2016-03-15 20:00] VITALS: BP 162/78; PULSE 95; RESP 18
[2016-03-15] MEDS: MONTELUKAST 10 MG TAB PO SCH (20:22)
[2016-03-15] MEDS: ATORVASTATIN 20 MG TAB PO SCH (20:22)
[2016-03-15] MEDS: traZODone 50 MG TAB PO SCH (20:23)
[2016-03-15 22:00] VITALS: BP 153/71; PULSE 100
[2016-03-16] MEDS: CEPASTAT LOZENGE MT PRN ×2 (02:01→21:10)
[2016-03-16] MEDS: HYDROCODONE/APAP (5/325) TAB PO PRN ×2 (02:02→15:14)
[2016-03-16] MEDS: ACETAMINOPHEN 325 MG TAB PO PRN ×2 (05:53→21:09)
[2016-03-16] MEDS: BUSPIRONE 5 MG TAB PO PRN ×2 (05:53→21:09)
[2016-03-16] MEDS: METHYLPREDNISOLONE 40 MG INJ IV SCH ×2 (05:53→21:08)
[2016-03-16 07:03] LABS: HEMATOCRIT 34.8 % (37.0-47.0); HEMOGLOBIN 11.6 g/dl (12.0-16.0); LYMPHOCYTES # 0.5 10^3/ul (0.8-2.9); LYMPHOCYTES % 6.8 % (15.0-51.0); MEAN CORPUSCULAR HEMOGLOBIN 31.1 pg (29.0-33.0); MEAN CORPUSCULAR HGB CONC 33.2 g/dl (32.0-37.0); MEAN CORPUSCULAR VOLUME 93.6 fl (82.0-101.0); MEAN PLATELET VOLUME 9.3 fl (7.4-10.4); MONOCYTE # 0.4 10^3/ul (0.3-0.9); MONOCYTES % 5.5 % (0.0-11.0); NEUTROPHIL # 6.4 10^3/ul (1.6-7.5); NEUTROPHILS % 87.7 % (39.0-77.0); PLATELET COUNT 237 10^3/UL (140-440); RED BLOOD COUNT 3.72 10^6/ul (4.20-5.40); RED CELL DISTRIBUTION WIDTH 15.1 % (11.5-14.5); UNCORRECTED WBC 7.3 10^3/ul (4.8-10.8); WHITE BLOOD COUNT 7.3 10^3/ul (4.8-10.8)
[2016-03-16 07:15] LABS: POTASSIUM 3.6 mmol/L (3.5-5.1)
[2016-03-16 07:17] LABS: CREATININE 0.71 mg/dl (0.44-1.00)
[2016-03-16 07:18] LABS: MAGNESIUM 2.1 mg/dl (1.7-2.5); PHOSPHORUS 4.1 mg/dl (2.5-4.9)
[2016-03-16 07:21] LABS: CONDITION 1; LH ANALYZER COMMENTS 1
[2016-03-16 08:08] VITALS: BP 170/77; RESP 18
[2016-03-16] MEDS ORDERED: DILTIAZEM (CD) 180 MG CAP PO SCH (09:00)
[2016-03-16] MEDS: ALBUTEROL/IPRATROPIUM (NEB) 3 ML AMP HHN SCH ×4 (09:04→20:19)
[2016-03-16] MEDS: SALMETEROL/FLUTICASONE 250/50 INHA INH SCH ×2 (10:24→21:08)
[2016-03-16] MEDS: FUROSEMIDE 20 MG INJ IV SCH (10:25)
[2016-03-16] MEDS: FAMOTIDINE 20 MG TAB PO SCH (10:26)
[2016-03-16] MEDS: VALSARTAN 160 MG TAB PO SCH ×2 (10:26→21:09)
[2016-03-16] MEDS: ENOXAPARIN 40 MG/0.4 ML SYG SC SCH (10:29)
[2016-03-16] MEDS ORDERED: DILTIAZEM (CD) 180 MG CAP PO ONE (11:30)
--- NOTE | 2016-03-16 11:58 | PN ---
Date/Time of Note Date/Time of Note DATE: 03/16/16 TIME: 11:53 Assessment/Plan VTE Prophylaxis VTE Prophylaxis Intervention: LMWH Lines/Catheters IV Catheter Type (from [facility]): [place] Urinary Cath still in place: No Assessment/Plan Chief Complaint/Hosp Course 1. Acute on chronic respiratory failure, hypoxic and hypercapnic, most probably secondary to chronic obstructive pulmonary disease exacerbation. The patient will be provided inhaled bronchodilators. She will be maintained on supplemental oxygen. CTA negative for any pulmonary embolism. 2. Chronic obstructive pulmonary disease exacerbation. The patient will be maintained on inhaled bronchodilators. The patient will be maintained on tapering dose of IV steroids. Continue empiric antibiotics for any underlying acute tracheobronchitis. 3. Diastolic heart failure, acute on chronic. The patient will be adequately diuresed. Troponins 2 negative. 4. Left-sided chest wall pain. Etiology unclear. Troponins 3 negative. Continue analgesics. 5. Pulmonary hypertension. The patient will be maintained on supplemental oxygen. 6. Paroxysmal atrial fibrillation. Currently in sinus rhythm. The patient will be maintained on non-dihydropyridine calcium channel blockers. Beta blockers will be avoided because of the patient's underlying bronchospasms . 7. Accelerated hypertension. The patient will be continued on routine antihypertensives. However, beta blockers will be avoided because of underlying bronchospasm. The patient will also be maintained on p.r.n. antihypertensives for any systolic blood pressure readings greater than 160 mmHg. 8. 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 The patient' s blood pressure will be tightly controlled to avoid any dissection of aneurysm. 9. Pre-diabetes. Currently hemoglobin A1c 5.2. The was on metformin. This is currently on hold because of the recent IV contrast. 11. Dyslipidemia. Continue statins. Fasting lipid panel optimal. 12. Abdominal pain. CTA of the abdomen showing 3.7 cm infrarenal abdominal aortic aneurysm with up to 1.1 cm of mural thrombus and aneurysmal dilation of the right common iliac artery, measuring up to 1.7 cm. The patient was seen and evaluated by vascular surgery. Vascular surgery recommended no surgical interventions. 13. Fluids, electrolytes, and nutrition. Carbohydrate controlled, low- cholesterol diet. 14. DVT prophylaxis. Subcutaneous Lovenox. 15. Gastrointestinal prophylaxis. Histamine 2 receptor blockers. 16. Plan. Continue antibiotics. Continue inhaled bronchodilators. Continue tapering dose of steroids. Adjust antihypertensives to obtain optimal blood pressure control Case discussed with Dr. Hastings. Problems: Subjective 24 Hr Interval Summary Free Text/Dictation Blood pressure running high. Complains of dyspnea. Denies any abdominal pain. Exam/Review of Systems Vital Signs Vitals Vital Signs Date Time Temp Pulse Resp B/P Pulse Ox O2 Delivery O2 Flow Rate FiO2 03/16/16 09:04 92 18 97 Nasal Cannula 2.0 03/16/16 08:08 98.4 170/77 03/13/16 21:40 28 Intake and Output 03/15/16 03/15/16 03/16/16 15:00 23:00 07:00 Intake Total 1260 ml 500 ml Balance 1260 ml 500 ml Exam GENERAL: This is an elderly 80-year-old female lying in bed in mild to moderate respiratory distress, doing pursed lip breathing. HEENT: Head normocephalic and atraumatic. Eyes: Anicteric sclerae. Conjunctivae clear. ENT: Nasal septum is midline. Oral mucosa is dry. NECK: Supple. No JVD noticed. RESPIRATORY: Bilaterally diminished breath sounds. Use of accessory muscles of respiration. CARDIAC: Regular rate and rhythm. No obvious murmurs heard. ABDOMEN: Soft, nontender and nondistended. Bowel sounds positive in all 4 quadrants. Abdominal scar from prior surgery. GENITOURINARY: Deferred. EXTREMITIES: No cyanosis. Clubbing of fingers of the bilateral upper extremities. NEUROLOGIC: The patient is awake, alert and oriented. Cranial nerves are grossly intact. Results Result Diagram: 03/16/1619 03/16/16 0519 Results 24 hrs Laboratory Tests Test 03/16/16 05:19 Anion Gap 17 H Basophils # 0.0 Basophils % 0.0 Blood Morphology Comment Blood Urea Nitrogen 28 H Calcium Level 9.0 Carbon Dioxide Level 41 *H Chloride Level 84 L Creatinine 0.71 Eosinophils # 0.0 Eosinophils % 0.0 Glucose Level 159 Hematocrit 34.8 L Hemoglobin 11.6 L Lymphocytes # 0.5 L Lymphocytes % 6.8 L Magnesium Level 2.1 Mean Corpuscular Hemoglobin 31.1 Mean Corpuscular Hemoglobin Concent 33.2 Mean Corpuscular Volume 93.6 Mean Platelet Volume 9.3 Monocytes # 0.4 Monocytes % 5.5 Neutrophils # 6.4 Neutrophils % 87.7 H Nucleated Red Blood Cells # 0.0 Nucleated Red Blood Cells % 0.0 Phosphorus Level 4.1 Platelet Count 237 Potassium Level 3.6 Red Blood Count 3.72 L Red Cell Distribution Width 15.1 H Sodium Level 138 White Blood Count 7.3 Medications Medications Current Medications Hydralazine HCl 10 mg 10 mg Q6H PRN IV SBP>160; Start 03/13/16 at 17:30 Azithromycin 250 ml @ 250 mls/hr Q24H IV Last administered on 03/15/16at 17:41 ; Admin Dose 250 MLS/HR; Start 03/13/16 at 18:00 Ceftriaxone Sodium (Rocephin) 50 ml @ 100 mls/hr Q24H IV Last administered on 03/15/16at 16:55; Admin Dose 100 MLS/HR; Start 03/13/16 at 17:30 Ondansetron HCl (Zofran Inj) 4 mg Q6H PRN IV NAUSEA AND/OR VOMITING; Start at 17:30 Acetaminophen (Tylenol Tab) 650 mg Q6H PRN PO PAIN LEVEL 1-3 OR FEVER Last administered on 03/16/16 05:53; Admin Dose 650 MG; Start 03/13/16 at 17:30 Acetaminophen/ Hydrocodone Bitart ([place] (5/325)) 1 tab Q6H PRN PO MODERATE PAIN LEVEL 4-6 Last administered on 03/16/16 02:02; Admin Dose 1 TAB; Start at 17:30 Famotidine (Pepcid) 20 mg DAILY PO Last administered on 03/16/16 10:26; Admin Dose 20 MG; Start 03/13/16 at 21:00 Enoxaparin Sodium (Lovenox) 40 mg DAILY SC Last administered on 03/16/16 10:29 ; Admin Dose 40 MG; Start 03/14/16 at 09:00 Buspirone HCl (Buspar) 5 mg BID PRN PO ANXIETY Last administered on 03/16/16 05 :53; Admin Dose 5 MG; Start 03/13/16 at 17:30 Trazodone HCl (Desyrel) 50 mg QHS PO Last administered on 03/15/16at 20:23; Admin Dose 50 MG; Start 03/13/16 at 21:00 Atorvastatin Calcium (Lipitor) 20 mg QHS PO Last administered on 03/15/16at 20: 22; Admin Dose 20 MG; Start 03/13/16 at 21:00 Morphine Sulfate (morphine) 2 mg Q4H PRN IV SEVERE PAIN LEVEL 7-10; Start at 17:30 Magnesium Hydroxide (Milk Of Mag) 30 ml DAILY PRN PO CONSTIPATION; Start 03/13 at 17:30 Bisacodyl (Dulcolax) 5 mg DAILY PRN PO CONSTIPATION; Start 03/13/16 at 17:30 Salmeterol Xinafoate/ Fluticasone (Advair 250/50 Diskus) 1 inh BID INH Last administered on 03/16/16 10:24; Admin Dose 1 INH; Start 03/13/16 at 21:00 Furosemide (Lasix) 20 mg DAILY IV Last administered on 03/16/16 10:25; Admin Dose 20 MG; Start 03/14/16 at 09:00 Montelukast Sodium (Singulair) 10 mg HS PO Last administered on 03/15/16at 20: 22; Admin Dose 10 MG; Start 03/14/16 at 21:00 Miscellaneous Information 1 ea NOTE XX ; Start 03/14/16 at 17:30 Glucose (Glutose) 15 gm Q15M PRN PO DECREASED GLUCOSE; Start 03/14/16 at 17:30 Glucose (Glutose) 22.5 gm Q15M PRN PO DECREASED GLUCOSE; Start 03/14/16 at 17: 30 Dextrose (D50w Syringe) 25 ml Q15M PRN IV DECREASED GLUCOSE; Start 03/14/16 at 17:30 Dextrose (D50w Syringe) 50 ml Q15M PRN IV DECREASED GLUCOSE; Start 03/14/16 at 17:30 Glucagon (Glucagen) 1 mg Q15M PRN IM DECREASED GLUCOSE; Start 03/14/16 at 17: 30 Glucose (Glutose) 15 gm Q15M PRN BUCCAL DECREASED GLUCOSE; Start 03/14/16 at 17:30 Methylprednisolone Sodium Succinate (Solu-Medrol) 40 mg Q8 IV Last administered on 03/16/16 05:53; Admin Dose 40 MG; Start 03/15/16 at 14:00 Phenol (Cepastat Lozenge) 1 lozenge Q1H PRN MT Sore throat Last administered on 03/16/16 02:01; Admin Dose 1 LOZENGE; Start 03/15/16 at 11:00 Diltiazem HCl (Cardizem Cd) 180 mg BID PO ; Start 03/16/16 at 21:00 Valsartan (Diovan) 160 mg BID PO ; Start 03/16/16 at 21:00 KITTY MORALES NP Mar 16, 2016 11:58
[2016-03-16 13:06] VITALS: BP 162/87; PULSE 100; RESP 16
[2016-03-16 15:03] VITALS: BP 150/76; PULSE 114; RESP 16
[2016-03-16] MEDS: CEFTRIAXONE 1 GM/50 ML (PMX) 50 ML IV SCH (17:05)
--- NOTE | 2016-03-16 18:10 | HP ---
DATE OF ADMISSION: 03/13/2016 TYPE OF CONSULTATION: Vascular surgery consultation. Dear Doctors, HISTORY OF PRESENT ILLNESS: Ms. Lee is an 80-year-old pleasant female who presented to [facility] with acute on chronic COPD exacerbation and respiratory distress. The patient has a plethora of medical conditions that are currently being treated in being overseen by the medic al service. Vascular surgery consultation was obtained secondary to patient having mid epigastric a bdominal pain associated with history of an infrarenal abdominal aortic aneurysm. At the moment, th e patient denies chest pain, nausea, vomiting, fever or chills. The patient denies lower extremity claudication or rest pain-like symptoms. She does have shortness of breath and currently on oxygen at the bedside and she does have some complaint of left shoulder pain. PAST MEDICAL HISTORY: Entails COPD exacerbation, history of hypercapnia, paroxysmal atrial fibrilla tion, essential hypertension, pulmonary hypertension, dyslipidemia, infrarenal abdominal aortic aneu rysm, prediabetes. 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 The patient has chronic midepigastric abdominal pain as a result of that. REVIEW OF SYSTEMS: A 12-point review performed and negative except what is mentioned in the HPI. PAST FAMILY HISTORY: Entails coronary artery disease and diabetes. SOCIAL HISTORY: Denies current use of tobacco, alcohol or illicit drug use. She was a previous smo ker, has quit for a few months. PHYSICAL EXAMINATION: GENERAL: She is alert and oriented x3, no apparent distress, some shortness of breath at the bedsid e on oxygen. HEENT: Normocephalic, atraumatic. EOMI. Mucosa moist. NECK: Supple. No carotid bruit. PULMONARY: Clear to auscultation bilaterally. Coarse breath sounds bilaterally, no crackles. CARDIOVASCULAR: S1, S2 present. Irregularly irregular. ABDOMEN: Soft, nontender, nondistended. Bowel sounds positive. Large truncal obesity and pannus. EXTREMITIES: Palpable femoral pulses, nonpalpable pedal pulses. Motor, sensory intact. Cap refill 3 to 4 seconds. No ulcers identified. ASSESSMENT AND PLAN: 1. Infrarenal abdominal aortic aneurysm: It seems the patient has abdominal aortic aneurysm that i s infrarenal that would be amenable for endovascular management considering that she has plethora of medical conditions. However, at this time, the aneurysm measures about 3.7 cm and will require vas cular surveillance and monitoring with abdominal ultrasound prior to any management. Ideally, we wo uld wait for her aneurysmal size to have increased close to 5 cm. The patient denies any history of autoimmune disease or Agnieszka-Danlos or Marfan syndrome. 2. Optimize vascular status (BP meds, diet, nutrition, exercise, sugar control, antiplatelets). 3. Discussed smoking cessation. Encouraged the patient to continue with her compliance. 4. In regards to her mid epigastric abdominal pain, is difficult to ascertain if it is associated t o the abdominal aortic aneurysm versus her chronic abdominal pain that she has had since she had her pancreatic surgery. Would recommend to monitor her blood pressure and try to maintain BPs that are in the 120s. If she reports that her abdominal pain is different than which she has had chronicall y, we may have to manage the aneurysm sooner rather than later. Discussed findings, plan and management with the patient and daughter at the bedside with a certifie d general lithographic worker. Thank you for allowing us to partake in the care of your patient. Please call with any questions. Dictated By: DANIELA BOYD/HAILEE Conf#: [id number] DID#: [id number]
[2016-03-16] MEDS: AZITHROMYCIN 500MG/NS (PMX) 250 ML IV SCH (18:31)
[2016-03-16 19:30] VITALS: BP 132/63; RESP 20
[2016-03-16] MEDS: ATORVASTATIN 20 MG TAB PO SCH (21:09)
[2016-03-16] MEDS: MONTELUKAST 10 MG TAB PO SCH (21:09)
[2016-03-16] MEDS: traZODone 50 MG TAB PO SCH (21:09)
[2016-03-16] MEDS: DILTIAZEM (CD) 180 MG CAP PO SCH (21:09)
[2016-03-17] MEDS: HYDROCODONE/APAP (5/325) TAB PO PRN ×2 (01:11→16:02)
[2016-03-17] MEDS: CEPASTAT LOZENGE MT PRN ×2 (01:12→08:47)
[2016-03-17 06:19] LABS: BASOPHILS % 0.2 % (0.0-2.0); HEMATOCRIT 38.9 % (37.0-47.0); HEMOGLOBIN 12.7 g/dl (12.0-16.0); LYMPHOCYTES # 0.6 10^3/ul (0.8-2.9); MEAN CORPUSCULAR HEMOGLOBIN 30.9 pg (29.0-33.0); MEAN CORPUSCULAR HGB CONC 32.7 g/dl (32.0-37.0); MEAN CORPUSCULAR VOLUME 94.5 fl (82.0-101.0); MEAN PLATELET VOLUME 9.8 fl (7.4-10.4); MONOCYTE # 0.5 10^3/ul (0.3-0.9); NEUTROPHIL # 8.4 10^3/ul (1.6-7.5); NEUTROPHILS % 88.8 % (39.0-77.0); PLATELET COUNT 271 10^3/UL (140-440); RED BLOOD COUNT 4.12 10^6/ul (4.20-5.40); RED CELL DISTRIBUTION WIDTH 15.3 % (11.5-14.5); UNCORRECTED WBC 9.4 10^3/ul (4.8-10.8); WHITE BLOOD COUNT 9.4 10^3/ul (4.8-10.8)
[2016-03-17 06:30] LABS: CONDITION 1; LH ANALYZER COMMENTS 1
[2016-03-17 06:49] LABS: POTASSIUM 3.8 mmol/L (3.5-5.1)
[2016-03-17 06:51] LABS: CREATININE 0.85 mg/dl (0.44-1.00)
[2016-03-17 06:52] LABS: CALCIUM 9.1 mg/dl (8.4-10.2)
[2016-03-17 06:59] LABS: MAGNESIUM 2.1 mg/dl (1.7-2.5); PHOSPHORUS 4.3 mg/dl (2.5-4.9)
[2016-03-17 07:43] VITALS: BP 107/56; RESP 20
[2016-03-17] MEDS: ALBUTEROL/IPRATROPIUM (NEB) 3 ML AMP HHN SCH ×3 (08:12→16:17)
[2016-03-17] MEDS: SALMETEROL/FLUTICASONE 250/50 INHA INH SCH (08:38)
[2016-03-17] MEDS: VALSARTAN 160 MG TAB PO SCH (08:40)
[2016-03-17] MEDS: METHYLPREDNISOLONE 40 MG INJ IV SCH (08:40)
[2016-03-17] MEDS: FAMOTIDINE 20 MG TAB PO SCH (08:40)
[2016-03-17] MEDS: DILTIAZEM (CD) 180 MG CAP PO SCH (08:41)
[2016-03-17] MEDS: FUROSEMIDE 20 MG INJ IV SCH (08:41)
[2016-03-17] MEDS: ENOXAPARIN 40 MG/0.4 ML SYG SC SCH (08:43)
[2016-03-17] MEDS: BUSPIRONE 5 MG TAB PO PRN ×2 (08:47→15:11)
[2016-03-17] MEDS ORDERED: DILT180C75 PO (13:48)
[2016-03-17] MEDS ORDERED: METF500T PO (13:48)
[2016-03-17] MEDS ORDERED: ATOR20TA65 PO (13:48)
[2016-03-17] MEDS ORDERED: VALS160T20 PO (13:48)
[2016-03-17] MEDS ORDERED: ALBU8.5H3 INH (13:48)
[2016-03-17] MEDS ORDERED: MONT10TA24 PO (13:48)
[2016-03-17] MEDS ORDERED: FURO20TA PO (13:48)
[2016-03-17] MEDS ORDERED: ADV25050 INH (13:48)
[2016-03-17] MEDS ORDERED: TIOT18CA INH (13:48)
--- NOTE | 2016-03-17 14:46 | PDOCDIS ---
Discharge Instructions DIAGNOSIS Discharge Diagnosis: 1. Acute on chronic respiratory failure likely secondary to COPD exacerbati CONDITION Patient Condition: Stable HOME CARE INSTRUCTIONS: Diet Instructions: Low Fat /CholesterolSpecial Diet: Carb controlled diet ACTIVITY: Activity Restrictions: Slowly Increase Activity Rest between Activity FOLLOW UP/APPOINTMENTS Appointments 1. Follow up with Dr. Spencer Bullock in 1-2 weeks 2. Follow up with Dr. Hollis Greene in one week OTHER ORDERS: Other Orders: 1. Call 911 if you have worsening chest pain/shortness of breath CARIE MURDOCK Mar 17, 2016 14:46
--- NOTE | 2016-03-17 21:45 | DS ---
DATE OF ADMISSION: 03/13/2016 DATE OF DISCHARGE: 03/17/2016 CONSULTANTS: 1. Dr. Hollis Greene. 2. Dr. Spencer Bullock. DISCHARGE DIAGNOSES: 1. Acute on chronic respiratory failure, likely secondary to chronic obstructive pulmonary disease exacerbation. 2. Diastolic heart failure, acute on chronic. 3. Reported left-sided chest pain. 4. Pulmonary hypertension. 5. Paroxysmal atrial fibrillation. 6. Accelerated hypertension. 7. 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 8. Dyslipidemia. 9. Abdominal pain, suspect secondary to #8. HOSPITAL COURSE: This is an 80-year-old female with history of COPD who uses home oxygen, hypercapn ia paroxysmal atrial fibrillation, history of hypertension, pulmonary hypertension, prediabetes, and dyslipidemia, abdominal and thoracic aortic aneurysm, who presented to [facility] due to reports of shortness of breath for 2 to 3 days prior to this admission. She also did report having some left-sided chest wall pain that radiates to her thoracic spine. She also was complaini ng of orthopnea and dyspnea with minimal exertion. She denied any sick contacts. Upon further exam ination, she did have a blood gas done that showed her to have a pCO2 of 81.3 with pH of 7.339 on FI O2 of 50%. She also had a chest x-ray that showed mild hyperinflation, but otherwise clear lungs an d also some cardiomegaly. We did get a keyboard instrument tuner to see the patient to help optimize her with h er respiratory status. We also did obtain a vascular surgeon consultation for her history of abdomi nal aortic aneurysm. Patient was provided with bronchodilators. She was also continued on oxygen a nd did have a good response from this. We did continue her on steroid medication as well [facility]. Patient was noted with diastolic dysfunction, and she did have some chest pain, but we did get serial troponins, which were all essentially negative. We did optimize the patient on her cardiovascular medications for her history of heart failure. For her pulmonary hypertension., she w as continued on O2. She did have a history of paroxysmal atrial fibrillation, which did remain in s inus rhythm. We did continue her on calcium channel mark. She was noted with accelerated hypert ension on admission, and we did continue her on antihypertensives with careful monitoring of possibl e bronchospasms from beta mark medication. For her aneurysm of the abdominal aorta and right com mon iliac artery, she was seen by a vascular surgeon who recommended no intervention at this time. However, we did get good blood pressure control to help her with this issue. For her dyslipidemia, we continued her on statin medication. During her course of stay, she did improve. She did report improved breathing, and she did have less wheezing noted. She was instructed to follow up with vascular surgeon as well as keyboard instrument tuner as outpatient. The plan of care was discussed with the patient and patient did verbalize understanding. On the day of discharge, the patient was in stable condition. Discharge physical exam and vital signs are stable. CONDITION: Stable. DISCHARGE PLAN: 1. Diet is low fat, low cholesterol, carbohydrate controlled. 2. Activity slow to increase and to rest between activity. 3. Patient to follow up with Dr. Spencer Bullock in 1 to 2 weeks. 4. Patient to follow with Dr. Hollis Greene in 1 week. 5. Patient to call 911 if she has worsening of dyspnea or shortness of breath. DISCHARGE MEDICATIONS: 1. Atorvastatin 20 mg p.o. at bedtime. 2. Diltiazem 180 mg p.o. b.i.d. 3. Lasix 20 mg p.o. daily. 4. Metformin 500 mg p.o. b.i.d. 5. Singulair 10 mg p.o. at bedtime. 6. Advair 250/50 1 puff b.i.d. 7. Diovan 160 mg p.o. b.i.d. 8. ProAir HFA 2 puffs q hours as needed for shortness of breath. 9. Buspirone 5 mg p.o. b.i.d. 10. Nystatin topically b.i.d. for antifungal. 11. Protonix 40 mg p.o. q.a.c. 12. Spiriva 18 mcg inhaled every day. 13. Trazodone 50 mg p.o. at bedtime as needed for sleep. 14. Kenalog application b.i.d. for rash. DISCHARGE PROCESS TIME: 40 minutes. Discussed plan of care with Dr. Alicia. Dictated By: CARIE LARRY/HAILEE Conf#: [id number] DID#: [id number]
[2016-03-19 07:24] VITALS: BP 99/59; RESP 20
== END 2016-03-17 17:40 | disposition home or self-care (01) | DRG 190 ==
LOC: E/R 12:56 → PP2 17:15
PROVIDERS: ADMIT Family Medicine; ATTEND Family Medicine
PROC: 4A033R1 Measurement of Arterial Saturation, Peripheral, Percutaneous Approach (ICD-10-PCS; principal; 2016-03-13)
DX: J44.1 Chronic obstructive pulmonary disease with (acute) exacerbation (principal); J96.21 Acute and chronic respiratory failure with hypoxia; I50.33 Acute on chronic diastolic (congestive) heart failure; J84.9 Interstitial pulmonary disease, unspecified; I27.2 Other secondary pulmonary hypertension; J96.22 Acute and chronic respiratory failure with hypercapnia; J45.909 Unspecified asthma, uncomplicated; I10 Essential (primary) hypertension; I48.0 Paroxysmal atrial fibrillation; I71.2 Thoracic aortic aneurysm, without rupture; I71.4 Abdominal aortic aneurysm, without rupture; R06.01 Orthopnea; R73.03 Prediabetes; E78.5 Hyperlipidemia, unspecified; Z99.81 Dependence on supplemental oxygen; Z87.891 Personal history of nicotine dependence
CPT/HCPCS: 36600; 71010; 71275; 75635; 80048; 80053; 80061; 81001; 81003; 82550; 82553; 82803; 82962; 83036; 83605; 83735; 83880; 84100; 84439; 84443; 84484; 85025; 85610; 85730; 87040; 93005; 94640; 94664; J1940; J0360; J0456; J0696; J1650; J2060; J2270; J2920; J2930; J3475; Q9967

== ENCOUNTER 2016-11-07 17:33 | Inpatient (IN) | payer MEDICARE, OTHER ==
[~2016-11-07] VITALS: Ht 152.4 cm; Wt 70.0 kg
[~2016-11-07 17:33] MED LIST changes: +ADV25050 INH; -AMP500 PO; +ATOR20TA65 PO; -BUDE6HFA INHALATION; -DILT120C62 PO; +DILT180C75 PO; +FURO-110 PO; -KENC1 TOP; +METF500T PO; -METF500T4 PO; -METO50TA16 PO; +MONT10TA24 PO; -ROSU5TAB5 PO; +TRIA15CR55 TOP
[2016-11-07 17:36] VITALS: Ht 152.4 cm; Wt 70.0 kg
[2016-11-07 19:05] VITALS: TEMP 98.9
[2016-11-07] MEDS ORDERED: IPRATROPIUM (NEB) 0.5 MG/2.5 ML AMP INH STA (19:25)
[2016-11-07] MEDS ORDERED: ALBUTEROL 0.083% (NEB) 2.5 MG/3 ML AMP INH STA (19:25)
[2016-11-07] MEDS ORDERED: METHYLPREDNISOLONE 125 MG INJ IV STA (19:25)
[2016-11-07 19:47] LABS: BASOPHIL # 0.1 10^3/ul (0.0-0.1); BASOPHILS % 0.6 % (0.0-2.0); EOSINOPHILS # 0.4 10^3/ul (0.0-0.5); EOSINOPHILS % 2.7 % (0.0-7.0); HEMATOCRIT 37.2 % (37.0-47.0); LYMPHOCYTES # 2.3 10^3/ul (0.8-2.9); LYMPHOCYTES % 17.5 % (15.0-51.0); MEAN CORPUSCULAR HEMOGLOBIN 30.8 pg (29.0-33.0); MEAN CORPUSCULAR HGB CONC 32.3 g/dl (32.0-37.0); MEAN CORPUSCULAR VOLUME 95.4 fl (82.0-101.0); MEAN PLATELET VOLUME 11.1 fl (7.4-10.4); MONOCYTE # 0.8 10^3/ul (0.3-0.9); MONOCYTES % 5.8 % (0.0-11.0); NEUTROPHILS % 71.6 % (39.0-77.0); PLATELET COUNT 243 10^3/UL (140-415); RED CELL DISTRIBUTION WIDTH 15.2 % (11.5-14.5); WHITE BLOOD COUNT 13.2 10^3/ul (4.8-10.8)
[2016-11-07 20:02] LABS: INR 0.91; PROTIME 12.3 Sec (12.2-14.2)
[2016-11-07 20:07] LABS: ANION GAP 15 (8-16); BLOOD UREA NITROGEN 16 mg/dl (7-20); CALCIUM 8.9 mg/dl (8.4-10.2); CARBON DIOXIDE 38 mmol/L (21-31); CHLORIDE 95 mmol/L (97-110); CREATININE 0.76 mg/dl (0.44-1.00); GLUCOSE 121 mg/dl (70-220); POTASSIUM 4.2 mmol/L (3.5-5.1); SODIUM 144 mmol/L (135-144)
--- NOTE | 2016-11-07 20:08 | ERA ---
ER Documentation Chief Complaint Date/Time DATE: 11/07/16 TIME: 19:59 Chief Complaint pt bib family with c/o sob wear home o2, labored breathing noted ,back pain HPI This is an 81-year-old female with a past medical history of COPD, heart failure , A. fib, diabetes who is presenting with progressive worsening shortness of breath for the last 3 days. The patient describes not feeling well for approximately 1 month. Over the last 8 days, she has noticed increased lower extremity swelling and discomfort bilaterally. Over the last 3 days she has developed increased wheezing and shortness of breath and fatigue. She has been taking her albuterol at home, but it is not been helping. The patient does not endorse any fever or chills. She denies any nausea or vomiting. She denies chest pain, but she does endorse a tightness. She has had no abdominal pain. Patient does endorse an aching back pain as well. She denies any changes to bowel movements urination. She has no focal deficits. The patient initially arrived hypoxic with a oxygenation in the 80s upon arrival. ROS All systems reviewed and are negative except as per history of present illness. Medications Home Meds Active Scripts Furosemide* (Lasix*) 20 Mg Tablet, 20 MG PO DAILY, #30 TAB Prov:CARIE MURDOCK 03/17/16 Montelukast Sodium* (Montelukast Sodium*) 10 Mg Tablet, 10 MG PO HS for 30 Days , TAB Prov:CARIE MURDOCK 03/17/16 Reported Medications Fluticasone/Vilanterol (Breo Ellipta 200-25 Mcg INH) 1 Each Blst.w.dev, 1 PUFF INHALATION DAILY, #1 INHALER 11/07/16 Tiotropium [place]* (Spiriva*) 18 Mcg Cap.w.dev, 1 CAP INHALATION DAILY, #30 CAP 11/07/16 Valsartan* (Diovan*) 160 Mg Tablet, 160 MG PO DAILY, TAB 11/07/16 Hydrocodone/Acetaminophen ([place] 5-325 Tablet) 1 Each Tablet, 1 EACH PO Q8H, TAB 11/07/16 Mirtazapine* (Mirtazapine*) 15 Mg Tablet, 15 MG PO HS, TAB 11/07/16 Gabapentin* (Gabapentin*) 100 Mg Capsule, 100 MG PO DAILY, #90 CAP 11/07/16 Diltiazem Hcl* (Cartia XT*) 180 Mg Cap.sr.24h, 180 MG PO DAILY, #30 CAP 11/07/16 Buspirone Hcl* (Buspirone Hcl*) 5 Mg Tab, 5 MG PO BID Y for PRN, TAB 12/14/15 Omeprazole* (Omeprazole*) 40 Mg Capsule.dr, 40 MG PO AC BREAKFAST, #30 CAP 06/28/15 Discontinued Reported Medications Trazodone Hcl* (Trazodone Hcl*) 50 Mg Tablet, 50 MG PO QHS, #30 TAB 12/14/15 Discontinued Scripts Valsartan* (Diovan*) 160 Mg Tablet, 160 MG PO BID for 30 Days, TAB Prov:CARIE MURDOCK 03/17/16 Salmeterol Xinaf/Fluticasone* (Advair*) 250-50 Diskus Inhaler, 1 INH INH BID for 30 Days Prov:CARIE MURDOCK 03/17/16 Metformin Hcl (Glucophage) 500 Mg Tablet, 500 MG PO WITH BREAKFAST DINNE for 30 Days, TAB Prov:CARIE MURDOCK 03/17/16 Diltiazem Hcl* (Cardizem CD*) 180 Mg Cap.sr.24h, 180 MG PO BID for 30 Days Prov:CARIE MURDOCK 03/17/16 Atorvastatin Calcium (Atorvastatin Calcium) 20 Mg Tablet, 20 MG PO QHS for 30 Days, TAB Prov:CARIE MURDOCK 03/17/16 Albuterol Sulfate* (Proair HFA*) 8.5 Gm Hfa.aer.ad, 2 PUFF INH Q4H Y for WHEEZING AND SOB, #1 INHALER Prov:CARIE MURDOCK 03/17/16 Tiotropium [place]* (Spiriva*) 18 Mcg Cap.w.dev, 1 INH INH DAILY for 30 Days Prov:CARIE MURDOCK 03/17/16 Nystatin* (Nystop*) 15 Gm Powder, 1 APPLIC TOP BID for 7 Days Prov:GREGORIO LI 12/19/15 Triamcinolone Acetonide* (Kenalog*) 0.1%-15GM Cr, 1 APPLIC TOP BID for 7 Days Prov:GREGORIO LI 12/19/15 Allergies Allergies: Coded Allergies: No Known Allergy (Unverified , 8/25/17) PMhx/Soc History of Surgery: Yes (Hx: Pancreatic surgery) Anesthesia Reaction: No Hx Neurological Disorder: No Hx Respiratory Disorders: Yes (asthma, COPD) Hx Cardiac Disorders: No Hx Psychiatric Problems: Yes (anxiety ) Hx Miscellaneous Medical Probl: No Hx Alcohol Use: No Hx Substance Use: No Hx Tobacco Use: Yes (quit 10 years ago) Smoking Status: Former smoker FmHx Family History: diabetes Physical Exam Vitals Vital Signs Date Time Temp Pulse Resp B/P Pulse Ox O2 Delivery O2 Flow Rate FiO2 11/07/16 19:49 75 20 95 Nasal Cannula 3.0 11/07/16 19:05 98.9 76 26 153/77 96 Nasal Cannula 2.0 11/07/16 19:05 Nasal Cannula 2.0 11/07/16 19:05 Nasal Cannula 2 11/07/16 17:36 98.9 83 28 172/79 93 Physical Exam Const: Mild Respiratory Distress Head: Atraumatic Eyes: Normal Conjunctiva ENT: Normal External Ears, Nose and Mouth. Neck: Full range of motion..~ No meningismus. Resp: Decreased breath sounds diffusely, wheezing diffusely, bibasilar rales Cardio: Regular rate and rhythm, no murmurs Abd: Soft, non tender, non distended. Normal bowel sounds Skin: No petechiae or rashes Back: No midline or flank tenderness to palpation Ext: No cyanosis, or edema Neur: Awake and alert Psych: Normal Mood and Affect Result Diagram: 11/07/16192911/07/161929 Results 24 hrs Laboratory Tests Test 11/07/16 19:30 White Blood Count 13.210^3/ul Red Blood Count 3.9010^6/ul Hemoglobin 12.0g/dl Hematocrit 37.2% Mean Corpuscular Volume 95.4fl Mean Corpuscular Hemoglobin 30.8pg Mean Corpuscular Hemoglobin Concent 32.3g/dl Red Cell Distribution Width 15.2% Platelet Count 73085^3/UL Mean Platelet Volume 11.1fl Neutrophils % 71.6% Lymphocytes % 17.5% Monocytes % 5.8% Eosinophils % 2.7% Basophils % 0.6% Nucleated Red Blood Cells % 0.0/100WBC Neutrophils # (Manual) 9.410^3/ul Lymphocytes # 2.310^3/ul Monocytes # 0.810^3/ul Eosinophils # 0.410^3/ul Basophils # 0.110^3/ul Nucleated Red Blood Cells # 0.010^3/ul Prothrombin Time 12.3Sec Prothrombin Time Ratio 1.0 INR International Normalized Ratio 0.91 Activated Partial Thromboplast Time 24.9Sec Sodium Level 144mmol/L Potassium Level 4.2mmol/L Chloride Level 95mmol/L Carbon Dioxide Level 38mmol/L Anion Gap 15 Blood Urea Nitrogen 16mg/dl Creatinine 0.76mg/dl Glucose Level 121mg/dl Calcium Level 8.9mg/dl Troponin I < 0.012ng/ml B-Type Natriuretic Peptide 717PG/ML Current Medications Medications (Trade) Dose Ordered Sig/Liza Route PRN Reason Start Time Stop Time Status Last Admin Dose Admin Albuterol (Proventil 0.083% (Neb)) 7.5 mg ONCE STAT INH 11/07/16 19:25 11/07/16 19:29 DC 11/07/16 19:48 Ipratropium [place] (Atrovent 0.02% (Neb)) 1.5 mg ONCE STAT INH 11/07/16 19:25 11/07/16 19:29 DC 11/07/16 19:49 Methylprednisolone Sodium Succinate (Solu-Medrol) 125 mg ONCE STAT IV 11/07/16 19:25 11/07/16 19:29 DC 11/07/16 19:43 Procedures/MDM The patient's presentation warrants a cardiopulmonary workup. Patient's blood work was obtained and reviewed. The patient does have a leukocytosis with no left shift. The patient is afebrile, but I am concerned of a possible COPD exacerbation. She does have a metabolic alkalosis which is likely associated with her respiratory acidosis related to respiratory distress. The patient does have complicating factor of an elevated BNP at 700. While this is not significantly elevated, clinically she does have acute on chronic heart failure exacerbation. Her x-ray also reveals significant vascular congestion, concerning for pulmonary edema. EKG read by me: Rate/Rhythm: Regular rate of 77. PVCs are present Intervals: Normal Impression: No evidence of ischemia or arrhythmia I am most concerned of heart failure in this patient. The patient will be given Lasix in the emergency department. The patient also has wheezing, suggestive of acute on chronic COPD exacerbation. With her leukocytosis, there is a possibility of an infectious etiology. She will be given a dose of Levaquin in the emergency department. The patient was given steroids in addition to nebulized treatments of albuterol and ipratropium with some improvement of her symptoms. However, she continues to be short of breath and requires oxygen. The additional component of significant hypoxia prior to arrival his compounding as well. The patient will be admitted to the hospitalist service for further evaluation and management. Departure Diagnosis: Primary Impression: COPD with exacerbation Additional Impression: CHF (congestive heart failure) Qualified Code: I50.9 - Acute on chronic congestive heart failure, unspecified congestive heart failure type Condition: VIRGIL Cochran MD Nov 07, 2016 20:02
[2016-11-07 20:17] LABS: PARTIAL THROMBOPLASTIN TIME 24.9 Sec (25.0-35.0)
[2016-11-07 20:18] LABS: TROPONIN-I < 0.012 ng/ml (0.00-0.12)
[2016-11-07] MEDS ORDERED: [UNRECOGNIZED DRUG - CODE] PO (20:33)
[2016-11-07] MEDS ORDERED: GABA100C14 PO (20:34)
[2016-11-07] MEDS ORDERED: MIRT15TA5 PO (20:34)
[2016-11-07] MEDS ORDERED: HYDR-906 PO (20:35)
[2016-11-07] MEDS ORDERED: VALS160T20 PO (20:35)
[2016-11-07] MEDS ORDERED: TIOT18CA INHALATION (20:36)
[2016-11-07] MEDS ORDERED: FLUT1BLS INHALATION (20:36)
--- NOTE | 2016-11-07 20:56 | RADRPT ---
PROCEDURE: Portable chest x-ray. CLINICAL INDICATION: 81 years of age, female. Shortness of breath. TECHNIQUE: Portable AP view of the chest. COMPARISON: None available. FINDINGS: Atherosclerotic calcification and tortuosity of the thoracic aorta. Enlarged cardiopericardial silh ouette. Bilateral hilar fullness is likely vascular. Cardiomediastinal contours are stable. Decreased lung volumes with vascular crowding. Pulmonary vessels are prominent likely due to pulmon robina venous congestion. Mild bilateral lower lobe atelectasis. Negative for pleural effusion or pneumothorax. Bones are osteopenic. IMPRESSION: Enlarged cardiopericardial silhouette and pulmonary venous congestion. Decreased lung volumes with bibasilar atelectasis. RPTAT: HCTS Physician Pool Date Time Electronically viewed and signed by Physician Pool on 11/07/2016 20:55 CS/
[2016-11-08] VITALS (8 sets, daily range): BP systolic 133–177; BP diastolic 62–91; PULSE 87–130; RESP 18–20
[2016-11-08] MEDS ORDERED: PANTOPRAZOLE (EC) 40 MG TAB PO SCH (06:00)
[2016-11-08] MEDS ORDERED: VALSARTAN 160 MG TAB PO SCH (09:00)
[2016-11-08] MEDS ORDERED: BUMETANIDE 2 MG in SOD CHLORIDE 0.9% 25 ML IV SCH (09:00)
[2016-11-08] MEDS ORDERED: TRIAMCINOLONE ACET 0.1% 15 GM CR TOP SCH (09:00)
[2016-11-08] MEDS ORDERED: NYSTATIN 15 GM CR TOP SCH (09:00)
[2016-11-08] MEDS: SALMETEROL/FLUTICASONE 250/50 INHA INH SCH ×2 (09:02→21:00)
[2016-11-08] MEDS: BUSPIRONE 5 MG TAB PO SCH ×2 (09:02→21:03)
[2016-11-08] MEDS: metFORMIN 500 MG TAB PO SCH ×2 (09:02→17:43)
[2016-11-08] MEDS: DILTIAZEM (CD) 180 MG CAP PO SCH ×2 (09:03→21:02)
[2016-11-08] MEDS: ALBUTEROL 0.083% (NEB) 2.5 MG/3 ML AMP INH SCH ×4 (09:13→20:27)
[2016-11-08 10:40] LABS: BASOPHILS % 0.4 % (0.0-2.0); HEMATOCRIT 38.5 % (37.0-47.0); HEMOGLOBIN 12.4 g/dl (12.0-16.0); LYMPHOCYTES # 1.3 10^3/ul (0.8-2.9); LYMPHOCYTES % 11.7 % (15.0-51.0); MEAN CORPUSCULAR HEMOGLOBIN 30.1 pg (29.0-33.0); MEAN CORPUSCULAR HGB CONC 32.2 g/dl (32.0-37.0); MEAN CORPUSCULAR VOLUME 93.4 fl (82.0-101.0); MEAN PLATELET VOLUME 10.6 fl (7.4-10.4); MONOCYTE # 0.2 10^3/ul (0.3-0.9); MONOCYTES % 1.6 % (0.0-11.0); PLATELET COUNT 233 10^3/UL (140-415); RED BLOOD COUNT 4.12 10^6/ul (4.20-5.40); RED CELL DISTRIBUTION WIDTH 14.7 % (11.5-14.5); WHITE BLOOD COUNT 10.7 10^3/ul (4.8-10.8)
[2016-11-08 11:02] LABS: ALBUMIN/GLOBULIN RATIO 1.14; BILIRUBIN,INDIRECT 0.8 mg/dl (0-1.1); BILIRUBIN,TOTAL 0.8 mg/dl (0.2-1.3); CALCIUM 9.5 mg/dl (8.4-10.2); CREATININE 0.72 mg/dl (0.44-1.00); MAGNESIUM 2.1 mg/dl (1.7-2.5); POTASSIUM 4.4 mmol/L (3.5-5.1); TOTAL PROTEIN 7.5 g/dl (6.1-8.1)
[2016-11-08] MEDS ORDERED: METHYLPREDNISOLONE 125 MG INJ IV SCH (12:00)
[2016-11-08] MEDS ORDERED: BUSPIRONE 5 MG TAB PO PRN (13:00)
--- NOTE | 2016-11-08 13:07 | HP ---
Date/Time of Note Date/Time of Note DATE: 11/08/16 TIME: 12:50 Assessment/Plan VTE Prophylaxis VTE Prophylaxis Intervention: LMWH Lines/Catheters IV [facility]atheter [facility] (from [facility]): Saline Lock Assessment/Plan Assessment/Plan 1. [id number] dyspnea, with mildly elevated BNP and pulmonary vascular congestion on pCXR but with wheezing and oxygen saturation last night in the 80s on room air. Appears to be a COPD exacerbation. No focal signs of infection. * Place under telemetry observation * Solu-medrol 60mg IV qAM * Duonebs q4h while awake * Start on doxycycline with probiotic coverage * Serial troponins * Diuresis * Hold off on Garcia catheter at patient's request * Full-code 2. Infrarenal abdominal aortic aneurysm. last February the aneurysm measured 3.7 cm. No family history of Agnieszka-Danlos or Marfan syndrome. * Vascular surveillance and monitoring with abdominal ultrasound 3. H/o atrial fibrillation, but in sinus rhythm now, rate 77 with multiple PVCs. Not on anticoagulation as an outpatient. * Will discuss anticoagulation with her ([place]an-speaking) daughter * Continue Cardizem for rate control 4. Hypertension * Continue Valsartan and cardizem * Bumex to replace lasix to facilitate diuresis for now without overdoing it. 5. Prevention * Protonix BID PO for GI protection * Lovenox for DVT prophylaxis. 6. Disposition -- anticipate she will ultimately go back home with her daughter. Ba Crowley MD PhD [phone] HPI/ROS Admit Date/Time Admit Date/Time Nov 08, 2016 at 02:40 Hx of Present Illness 81-year-old woman with a history of atrial fibrillation, COPD and congestive heart failure. I interviewed her with her daughter and granddaughter in room 5536. She hasn't been feeling well the past month, with dry cough and increased difficulty getting around the house. The last three days she was increasingly short of breath, with mild upper chest discomfort but no nausea, emesis, headache, visual change, or lightheadedness. She presented last February, with similar acute on chronic respiratory distress attributed to a COPD exacerbation. She underwent a vascular surgery consultation at that time because of mid- epigastric pain associated with history of an infrarenal abdominal aortic aneurysm. On review of systems, she denied back or abdominal pain. She has a poor appetite. She does not check blood sugars at home, because her PCP told her she does not need to do it. PAST MEDICAL HISTORY: 1. Multiple ER visits for COPD exacerbation 2. History of hypercapnia 3. Paroxysmal atrial fibrillation 4. Essential hypertension 5. Pulmonary hypertension 6. Dyslipidemia 7. Infrarenal abdominal aortic aneurysm 8. Pre-diabetes. PAST SURGICAL HISTORY: Hysterectomy, cholecystectomy, tumor removal from the pancreas. PAST FAMILY HISTORY: Positive for coronary artery disease and diabetes. SOCIAL HISTORY: Lives with her daughter. Stopped smoking last year. [place]an- speaking only. ROS As noted above. PMH/Family/Social Social History Smoking Status: Former smoker Exam/Review of Systems Vital Signs Vitals Vital Signs Date Time Temp Pulse Resp B/P Pulse Ox O2 Delivery O2 Flow Rate FiO2 11/08/16 12:08 130 11/08/16 12:04 98.1 18 177/91 99 11/08/16 09:16 Nasal Cannula 2.0 Exam Exam GENERAL: She was alert and oriented, breathing comfortably on oxygen per nasal cannula. HEENT: Normocephalic, atraumatic. EOMI. Mucosa moist. No thrush. NECK: Supple. No JVD. PULMONARY: Mildly coarse breath sounds bilaterally, no crackles or wheezing now. CARDIOVASCULAR: Irregular, normal rate, no murmur, good peripheral perfusion. ABDOMEN: Soft, non-tender, non-distended. Bowel sounds positive. large mid- abdominal scar is well-healed. EXTREMITIES: Warm feet and palpable pedal pulses, skin intact, no active arthritis. NEURO: Alert, oriented, cranial nerves/motor/sensation intact. Labs Result Diagram: 11/08/1695511/08/16955 Medications Medications Current Medications Valsartan 160 mg 160 mg BID PO Last administered on 11/08/16 09:04; Admin Dose 160 MG; Start 11/08/16 at 09:00 Bumetanide/Sodium Chloride (Bumex/NS) 25 ml @ 66 mls/hr Q24H IV Last administered on 11/08/16 09:14; Admin Dose 66 MLS/HR; Start 11/08/16 at 09:00 Salmeterol Xinafoate/ Fluticasone (Advair 250/50 Diskus) 1 inh BID INH Last administered on 11/08/16 09:02; Admin Dose 1 INH; Start 11/08/16 at 09:00 Montelukast Sodium (Singulair) 10 mg HS PO ; Start 11/08/16 at 21:00 Diltiazem HCl (Cardizem Cd) 180 mg BID PO Last administered on 11/08/16 09:03 ; Admin Dose 180 MG; Start 11/08/16 at 09:00 Atorvastatin Calcium (Lipitor) 20 mg DAILY@21 PO ; Start 11/08/16 at 21:00 Nystatin (Nystatin Cr) 1 applic BID TOP ; Start 11/08/16 at 09:00; Stop 11/15/16 at 08:59; Status UNV Triamcinolone Acetonide (Kenalog 0.1% Cr) 1 applic BID TOP ; Start 11/08/16 at 09:00; Stop 11/15/16 at 08:59; Status UNV Trazodone HCl (Desyrel) 50 mg HS PO ; Start 11/08/16 at 21:00 Buspirone HCl (Buspar) 5 mg BID PO Last administered on 11/08/16 09:02; Admin Dose 5 MG; Start 11/08/16 at 09:00 Pantoprazole (Protonix Tab) 40 mg DAILY@06 PO Last administered on 11/08/16 09 :01; Admin Dose 40 MG; Start 11/08/16 at 06:00 Methylprednisolone Sodium Succinate (Solu-Medrol) 60 mg QAM IV Last administered on 11/08/16 12:45; Admin Dose 60 MG; Start 11/08/16 at 12:00 Buspirone HCl (Buspar) 5 mg BID PRN PO PRN; Start 11/08/16 at 13:00; Status UNV Diltiazem HCl (Cardizem Cd) 180 mg DAILY PO ; Start 11/09/16 at 09:00; Status UNV Gabapentin (Neurontin) 100 mg DAILY PO ; Start 11/09/16 at 09:00; Status UNV Acetaminophen/ Hydrocodone Bitart ([place] (5/325)) 1 tab Q8H PRN PO moderate to severe pain; Start 11/08/16 at 13:00; Status UNV Mirtazapine (Remeron) 15 mg HS PO ; Start 11/08/16 at 21:00; Status UNV Montelukast Sodium (Singulair) 10 mg HS PO ; Start 11/08/16 at 21:00; Status UNV Valsartan (Diovan) 160 mg DAILY PO ; Start 11/09/16 at 09:00; Status UNV Miscellaneous Information 1 puff 1 puff DAILY INHALATION ; Start 11/09/16 at 09: 00; Status UNV Bumetanide/ Dextrose (Bumex/D5W) 25 ml @ 0 mls/hr DAILY IVPB ; Start 11/09/16 at 09:00; Status UNV Pantoprazole (Protonix Tab) 40 mg BID@06,18 PO ; Start 11/08/16 at 18:00; Status UNV WALESKA CROWLEY M.D. Nov 08, 2016 13:07
[2016-11-08] MEDS: ENOXAPARIN 40 MG/0.4 ML SYG SC SCH (14:57)
[2016-11-08] MEDS: HYDROCODONE/APAP (5/325) TAB PO PRN (15:00)
[2016-11-08] MEDS: PANTOPRAZOLE (EC) 40 MG TAB PO SCH (17:43)
[2016-11-08] MEDS: ATORVASTATIN 20 MG TAB PO SCH (21:00)
[2016-11-08] MEDS ORDERED: MONTELUKAST 10 MG TAB PO SCH (21:00)
[2016-11-08] MEDS: MONTELUKAST 10 MG TAB PO SCH (21:02)
[2016-11-08] MEDS: traZODone 50 MG TAB PO SCH (21:02)
[2016-11-08] MEDS: MIRTAZAPINE 15 MG TAB PO SCH (21:03)
[2016-11-09] VITALS (12 sets, daily range): BP systolic 110–145; BP diastolic 56–75; PULSE 73–101; RESP 15–20
[2016-11-09] MEDS: PANTOPRAZOLE (EC) 40 MG TAB PO SCH ×2 (06:04→19:02)
[2016-11-09] MEDS: ALBUTEROL 0.083% (NEB) 2.5 MG/3 ML AMP INH SCH ×4 (08:57→21:07)
[2016-11-09] MEDS ORDERED: NON-FORMULARY/PATIENT OWN MED (Fluticasone/Vilanterol (Breo Ellipta 200-25 Mcg INH) 1 PUFF INHALATION SCH (09:00)
[2016-11-09] MEDS ORDERED: predniSONE 20 MG TAB PO SCH (09:00)
[2016-11-09] MEDS: DILTIAZEM (CD) 180 MG CAP PO SCH (09:25)
[2016-11-09] MEDS: VALSARTAN 160 MG TAB PO SCH (09:25)
[2016-11-09] MEDS: metFORMIN 500 MG TAB PO SCH ×2 (09:26→19:03)
[2016-11-09] MEDS: SALMETEROL/FLUTICASONE 250/50 INHA INH SCH ×2 (09:26→21:51)
[2016-11-09] MEDS: GABAPENTIN 100 MG CAP PO SCH (09:26)
[2016-11-09] MEDS: BUSPIRONE 5 MG TAB PO SCH ×2 (09:26→21:51)
[2016-11-09] MEDS: ENOXAPARIN 40 MG/0.4 ML SYG SC SCH (09:27)
[2016-11-09] MEDS: BUMETANIDE 2 MG in DEXTROSE 5% 17 ML IVPB SCH (09:31)
--- NOTE | 2016-11-09 10:22 | RADRPT ---
Echocardiogram Report Patient Name: MILO GERONIMO Gender: Female Date: 1935 Study Date: 08-Nov-2016 Slitter Scorer: Kiran [address] [facility] Location: 5536 Ref. Physician: BARRON PAEZ Quality: Technically Difficult Study Procedures: Transthoracic echocardiogram with complete 2D, M-Mode, and doppler examination. Indications: Elevated BNP. 2D/M Mode Doppler Measurement Value Normal Ranges Measurement Value Normal Ranges LVIDd 2D 4.1 3.5 - 5.6 cm ILA Vmax 2.7 cm2 LVIDs 2D 2.2 2.1 - 4.1 cm ILA VTI 3.4 cm2 FS 2D 46.2 % AV Mean Jerrod 1.4 m/sec LVPWd 2D 1.3 0.6 - 1.1 cm AV Mean PG 10.0 mmHg IVSd 2D 1.3 0.6 - 1.1 cm AV Peak Jerrod 2.3 m/sec IVS/LVPW 2D 1.0 AV Peak PG 21.0 mmHg AoR Diam 2D 2.8 2.0 - 3.7 cm AV VTI 35.6 cm LA/Ao 2D 2 0 - 1 LVOT Mean Jerrod 1.3 m/sec EDV 2D 69.4 cm3 LVOT Mean PG 8.0 mmHg ESV 2D 10.8 cm3 LVOT Peak Jerrod 2.0 m/sec LA Dimen 2D 4.5 2.3 - 4.0 cm LVOT Peak PG 16.0 mmHg LVOT Diam 2.0 cm LVOT VTI 38.6 cm LVOT Area 3.1 cm2 MV E Peak Jerrod 0.8 m/sec MV A Peak Jerrod 1.6 m/sec MV E/A 0.5 MV Decel Time 130 msec MV E/A 0.5 TR Peak Jerrod 2.7 m/sec TR Peak PG 30.0 mmHg RVSP 38.0 mmHg Findings Left Ventricle: Normal left ventricular systolic function. Normal left ventricular cavity size. Mild concentric left ventricular hypertrophy. Ejection fraction is visually estimated at 65 %. Tissue Doppler/Mitral Doppler indices are consistent with impaired relaxation (Stage I diastolic dysfunction). Right Ventricle: Normal right ventricular size. Normal right ventricular systolic function. Left Atrium: There is moderate enlargement of left atrium. Right Atrium: There is mild enlargement of right atrium. Mitral Valve: Mitral valve leaflets appear mildly thickened. Moderate mitral annular calcification. Mild to moderate mitral valve regurgitation. Aortic Valve: Mild aortic stenosis. Aortic valve Max velocity 2.29 m/sec. Max PG 21.00 mmHg. Mean PG 10.00 mmHg. Aortic cusps appear moderately calcified. Trace to mild aortic valve regurgitation. Tricuspid Valve: Normal appearance of the tricuspid valve. Estimated peak PA systolic pressure 30 mmHg. There is trace tricuspid regurgitation. Pulmonic Valve: Normal pulmonic valve appearance. Pericardium: Normal pericardium with no significant pericardial effusion. Aorta: Normal aortic root. IVC: The IVC is not well visualized. Conclusions 1.Normal left ventricular systolic function. Normal left ventricular cavity size. Mild concentric left ventricular hypertrophy. Ejection fraction is visually estimated at 65 %. Tissue Doppler/Mitral Doppler indices are consistent with impaired relaxation (Stage I diastolic dysfunction). 2.Moderate mitral annular calcification. Mild to moderate mitral valve regurgitation. 3.Mild aortic stenosis. Trace to mild aortic valve regurgitation. 4.Estimated peak PA systolic pressure 30 mmHg plus RA pressure. Electronically Signed By: García Hui 09-Nov-2016 10:21:39 -0700 Patient Name: MILO GERONIMO Study Date: 08-Nov-2016 [id number]
--- NOTE | 2016-11-09 16:10 | PN ---
Date/Time of Note Date/Time of Note DATE: 11/09/16 TIME: 16:10 Assessment/Plan VTE Prophylaxis VTE Prophylaxis Intervention: LMWH Lines/Catheters IV [facility] Saline Lock Assessment/Plan Assessment/Plan [facility] 1. Jafny-qf-egktsgi dyspnea, with mildly elevated BNP and pulmonary vascular congestion on pCXR. Echo today shows preserved LV function, without significant valvular disease or diastolic dysfunction. Still moderately wheezing. Appears to be a COPD exacerbation. No focal signs of infection. * Continue under telemetry observation * Solu-medrol 60mg IV qAM * Duonebs q4h while awake * Start on doxycycline with probiotic coverage * Diuresis with Bumex * Full-code 2. Infrarenal abdominal aortic aneurysm. last February the aneurysm measured 3.7 cm. No family history of Agnieszka-Danlos or Marfan syndrome. * Vascular surveillance and monitoring with abdominal ultrasound 3. H/o atrial fibrillation, but in sinus rhythm now, rate 77 with multiple PVCs. Not on anticoagulation as an outpatient. * Will discuss anticoagulation with her (Khmer-speaking) daughter * Continue Cardizem for rate control 4. Hypertension * Continue Valsartan and cardizem * Bumex to replace lasix to facilitate diuresis for now without overdoing it. 5. Prevention * Protonix BID PO for GI protection * Lovenox for DVT prophylaxis. 6. Disposition -- anticipate she will ultimately go back home with her daughter. Ba Crowley MD PhD [phone] Subjective 24 Hr Interval Summary Free Text/Dictation Feeling better today, with better breathing and no chest pain. Appetite not great, but no nausea or abdominal pain. No headache or productive cough. Exam/Review of Systems Vital Signs Vitals Vital Signs Date Time Temp Pulse Resp B/P Pulse Ox O2 Delivery O2 Flow Rate FiO2 11/09/16 16:00 91 11/09/16 13:41 18 94 Nasal Cannula 2.0 11/09/16 11:56 98.0 145/75 Intake and Output 11/08/16 11/08/16 11/09/16 15:00 23:00 07:00 Intake Total 750 ml 700 ml Balance 750 ml 700 ml Exam GENERAL: Mildly uncomfortable-appearing, but without labored breathing on oxygen per nasal cannula. HEENT: Pupils were equal, round, and reactive to light. EOMI. Moist oral mucosa. No JVD. CARDIOVASCULAR: Regular rhythm, normal rate. No murmur. CHEST: Moderate mid-expiratory wheezing in all lung tony. No crackles. No retractions. ABDOMEN: Soft, nontender, non-distended. Positive bowel sounds. EXTREMITIES: Alert, oriented, cranial nerves intact, motor 5/5 bilaterally. Toes downgoing. SKIN: No rash. Results Result Diagram: 11/08/1695511/08/16955 Results 24 hrs Laboratory Tests Test 11/08/16 17:15 Troponin I < 0.012 Medications Medications Current Medications Salmeterol Xinafoate/ Fluticasone (Advair 250/50 Diskus) 1 inh BID INH Last administered on 11/09/16 09:26; Admin Dose 1 INH; Start 11/08/16 at 09:00 Montelukast Sodium (Singulair) 10 mg HS PO Last administered on 11/08/16 21:02 ; Admin Dose 10 MG; Start 11/08/16 at 21:00 Atorvastatin Calcium (Lipitor) 20 mg DAILY@21 PO Last administered on 21:00; Admin Dose 20 MG; Start 11/08/16 at 21:00 Nystatin (Nystatin Cr) 1 applic BID TOP ; Start 11/08/16 at 09:00; Stop 11/15/16 at 08:59; Status UNV Triamcinolone Acetonide (Kenalog 0.1% Cr) 1 applic BID TOP ; Start 11/08/16 at 09:00; Stop 11/15/16 at 08:59; Status UNV Trazodone HCl (Desyrel) 50 mg HS PO Last administered on 11/08/16 21:02; Admin Dose 50 MG; Start 11/08/16 at 21:00 Buspirone HCl (Buspar) 5 mg BID PO Last administered on 11/09/16 09:26; Admin Dose 5 MG; Start 11/08/16 at 09:00 Diltiazem HCl (Cardizem Cd) 180 mg DAILY PO Last administered on 11/09/16 09: 25; Admin Dose 180 MG; Start 11/09/16 at 09:00 Gabapentin (Neurontin) 100 mg DAILY PO Last administered on 11/09/16 09:26; Admin Dose 100 MG; Start 11/09/16 at 09:00 Acetaminophen/ Hydrocodone Bitart ([place] (5/325)) 1 tab Q8H PRN PO moderate to severe pain Last administered on 11/08/16 15:00; Admin Dose 1 TAB; Start at 13:00 Mirtazapine (Remeron) 15 mg HS PO Last administered on 11/08/16 21:03; Admin Dose 15 MG; Start 11/08/16 at 21:00 Valsartan 160 mg 160 mg DAILY PO Last administered on 11/09/16 09:25; Admin Dose 160 MG; Start 11/09/16 at 09:00 Bumetanide/ Dextrose (Bumex/D5W) 25 ml @ 0 mls/hr DAILY IVPB Last administered on 11/09/16 09:31; Admin Dose 0 MLS/HR; Start 11/09/16 at 09:00 Pantoprazole (Protonix Tab) 40 mg BID@06,18 PO Last administered on 11/09/16 06:04; Admin Dose 40 MG; Start 11/08/16 at 18:00 Enoxaparin Sodium (Lovenox) 40 mg DAILY SC Last administered on 11/09/16 09:27 ; Admin Dose 40 MG; Start 11/08/16 at 14:30 Methylprednisolone Sodium Succinate (Solu-Medrol) 40 mg ONCE ONCE IV ; Start at 16:30; Stop 11/09/16 at 16:31; Status UNV Methylprednisolone Sodium Succinate (Solu-Medrol) 60 mg QAM IV ; Start 11/10/16 at 09:00; Status UNV WALESKA CROWLEY M.D. Nov 09, 2016 16:10
[2016-11-09] MEDS ORDERED: METHYLPREDNISOLONE 40 MG INJ IV ONE (16:30)
[2016-11-09] MEDS: DOXYCYCLINE 100 MG in SOD CHLORIDE 0.9% 250 ML IVPB SCH (21:50)
[2016-11-09] MEDS: traZODone 50 MG TAB PO SCH (21:50)
[2016-11-09] MEDS: ATORVASTATIN 20 MG TAB PO SCH (21:50)
[2016-11-09] MEDS: MONTELUKAST 10 MG TAB PO SCH (21:50)
[2016-11-09] MEDS: MIRTAZAPINE 15 MG TAB PO SCH (21:50)
[2016-11-10] VITALS (13 sets, daily range): BP systolic 98–147; BP diastolic 50–84; PULSE 79–97; RESP 20
[2016-11-10] MEDS: PANTOPRAZOLE (EC) 40 MG TAB PO SCH ×2 (05:20→17:42)
[2016-11-10] MEDS: GABAPENTIN 100 MG CAP PO SCH (08:43)
[2016-11-10] MEDS: metFORMIN 500 MG TAB PO SCH ×2 (08:43→17:42)
[2016-11-10] MEDS: BUSPIRONE 5 MG TAB PO SCH ×2 (08:43→20:41)
[2016-11-10] MEDS: SALMETEROL/FLUTICASONE 250/50 INHA INH SCH ×2 (08:43→20:41)
[2016-11-10] MEDS: DOXYCYCLINE 100 MG in SOD CHLORIDE 0.9% 250 ML IVPB SCH (08:44)
[2016-11-10] MEDS: DILTIAZEM (CD) 180 MG CAP PO SCH (08:44)
[2016-11-10] MEDS: METHYLPREDNISOLONE 125 MG INJ IV SCH (08:45)
[2016-11-10] MEDS: VALSARTAN 160 MG TAB PO SCH (08:45)
[2016-11-10] MEDS: ENOXAPARIN 40 MG/0.4 ML SYG SC SCH (08:47)
[2016-11-10] MEDS: ALBUTEROL 0.083% (NEB) 2.5 MG/3 ML AMP INH SCH ×5 (09:00→20:39)
[2016-11-10] MEDS: BUMETANIDE 2 MG in DEXTROSE 5% 17 ML IVPB SCH (11:46)
[2016-11-10] MEDS ORDERED: DEXTROSE 50% 50 ML SYRINGE IV PRN ×2 (17:30)
[2016-11-10] MEDS ORDERED: GLUCOSE GEL 15 GRAM TUBE BUCCAL PRN (17:30)
[2016-11-10] MEDS ORDERED: GLUCOSE GEL 15 GRAM TUBE PO PRN ×2 (17:30)
[2016-11-10] MEDS ORDERED: GLUCAGON 1 MG INJ IM PRN (17:30)
--- NOTE | 2016-11-10 17:43 | PN ---
Date/Time of Note Date/Time of Note DATE: 11/10/16 TIME: 17:15 Assessment/Plan VTE Prophylaxis VTE Prophylaxis Intervention: LMWH Lines/Catheters [facility] (from [facility] Saline Lock Urinary Cath still in place: No Assessment/Plan Assessment/Plan 81-year-old female with: 1. Respiratory distress acute on chronic, chronic hypoxemia, oxygen dependent unclear if patient has COPD versus permanent fibrosis versus asthma versus chronic bronchitis, she definitely has some chronic lung disease. Agree with current regimen of inhalers, patient already on Advair, we will add Spiriva, continue duonebs. Possibly COPD versus asthma exacerbation Continue current medications, will change to Medrol Dosepak the time of discharge. Continue nebulizer treatment Change antibiotics to Levaquin x 5 days 2. Infrarenal abdominal aortic aneurysm. last February the aneurysm measured 3.7 cm. Stable. Outpatient monitoring 3. Paroxysmal atrial fibrillation, but in sinus rhythm now, rate 77 with multiple PVCs. Not on anticoagulation as an outpatient. Needs at least to be on aspirin. Need to find out for family why patient not on anticoagulation. She may have had a contraindication Continue Cardizem for rate control 4. Hypertension: Continue Valsartan and cardizem Decrease Bumex to 1 mg p.o. daily, patient seems fairly euvolemic. Follow-up on CT chest, if no signs of pulmonary edema will discontinue Bumex. Check labs in a.m. 5. Diabetes mellitus, apparently patient recently started on metformin, check hemoglobin A1c, sliding scale insulin added especially while on steroids Prophylaxis: Protonix BID PO for GI prophylaxis and Lovenox for DVT prophylaxis. Disposition: Discharge planning hopefully in the next 24-48 hours for home back on home oxygen. Subjective 24 Hr Interval Summary Free Text/Dictation Patient currently on 2 L nasal cannula, she reports that she does have chronic COPD versus bronchitis versus asthma, either way she is a chronically hypoxemic requiring 2-3 L nasal cannula at home, she does have home oxygen. She feels better today, will change her antibiotic regimen to Levaquin in anticipation of discharge in the next 24 hours back home. Current medication. Also obtain a CT chest noncontrast to evaluate lung tony Exam/Review of Systems Vital Signs Vitals Vital Signs Date Time Temp Pulse Resp B/P Pulse Ox O2 Delivery O2 Flow Rate FiO2 11/10/16 16:48 97 11/10/16 15:44 98.9 20 147/69 94 11/10/16 14:20 Nasal Cannula 2.0 Intake and Output 11/09/16 11/09/16 11/10/16 15:00 23:00 07:00 Intake Total 1000 ml 800 ml Balance 1000 ml 800 ml Exam Constitutional: alert, obese, oriented, other (Mild respiratory distress) Respiratory: diminished breath sounds (Bilaterally scattered.), other (Oxygen dependent) Cardiovascular: nl pulses, regular rate and rhythm Gastrointestinal: non-tender, soft Musculoskeletal: nl extremities to inspection Extremities: normal pulses, other (No edema, clubbing or cyanosis) 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, nl mental status, nl speech, nl strength Results Result Diagram: 11/08/1695511/08/16955 Medications Medications Current Medications Salmeterol Xinafoate/ Fluticasone (Advair 250/50 Diskus) 1 inh BID INH Last administered on 11/10/16 08:43; Admin Dose 1 INH; Start 11/08/16 at 09:00 Montelukast Sodium (Singulair) 10 mg HS PO Last administered on 11/09/16 21:50 ; Admin Dose 10 MG; Start 11/08/16 at 21:00 Atorvastatin Calcium (Lipitor) 20 mg DAILY@21 PO Last administered on 21:50; Admin Dose 20 MG; Start 11/08/16 at 21:00 Trazodone HCl (Desyrel) 50 mg HS PO Last administered on 11/09/16 21:50; Admin Dose 50 MG; Start 11/08/16 at 21:00 Buspirone HCl (Buspar) 5 mg BID PO Last administered on 11/10/16 08:43; Admin Dose 5 MG; Start 11/08/16 at 09:00 Diltiazem HCl (Cardizem Cd) 180 mg DAILY PO Last administered on 11/10/16 08: 44; Admin Dose 180 MG; Start 11/09/16 at 09:00 Gabapentin (Neurontin) 100 mg DAILY PO Last administered on 11/10/16 08:43; Admin Dose 100 MG; Start 11/09/16 at 09:00 Acetaminophen/ Hydrocodone Bitart ([place] (5/325)) 1 tab Q8H PRN PO moderate to severe pain Last administered on 11/08/16 15:00; Admin Dose 1 TAB; Start at 13:00 Mirtazapine (Remeron) 15 mg HS PO Last administered on 11/09/16 21:50; Admin Dose 15 MG; Start 11/08/16 at 21:00 Valsartan 160 mg 160 mg DAILY PO Last administered on 11/09/16 09:25; Admin Dose 160 MG; Start 11/09/16 at 09:00 Bumetanide/ Dextrose (Bumex/D5W) 25 ml @ 0 mls/hr DAILY IVPB Last administered on 11/10/16 11:46; Admin Dose 8.5 MLS/HR; Start 11/09/16 at 09:00 Pantoprazole (Protonix Tab) 40 mg BID@06,18 PO Last administered on 11/10/16 05:20; Admin Dose 40 MG; Start 11/08/16 at 18:00 Enoxaparin Sodium (Lovenox) 40 mg DAILY SC Last administered on 11/10/16 08:47 ; Admin Dose 40 MG; Start 11/08/16 at 14:30 Methylprednisolone Sodium Succinate 60 mg 60 mg QAM IV Last administered on 08:45; Admin Dose 60 MG; Start 11/10/16 at 09:00 Doxycycline Hyclate/Sodium Chloride (Vibramycin/NS) 250 ml @ 250 mls/hr Q12 IVPB Last administered on 11/10/16 08:44; Admin Dose 250 MLS/HR; Start at 21:00 JEANNA RUEDA Nov 10, 2016 17:25
[2016-11-10] MEDS: INSULIN ASPART [NOVOLOG] 3 ML PEN SC SCH ×2 (17:53→20:45)
[2016-11-10] MEDS ORDERED: LEVOFLOXACIN 750 MG TABLET PO SCH (18:00)
[2016-11-10] MEDS: MONTELUKAST 10 MG TAB PO SCH (20:41)
[2016-11-10] MEDS: ATORVASTATIN 20 MG TAB PO SCH (20:41)
[2016-11-10] MEDS: traZODone 50 MG TAB PO SCH (20:41)
[2016-11-10] MEDS: MIRTAZAPINE 15 MG TAB PO SCH (22:39)
[2016-11-11] VITALS (9 sets, daily range): BP systolic 117–136; BP diastolic 57–73; PULSE 76–92; RESP 17–22
[2016-11-11] MEDS: HYDROCODONE/APAP (5/325) TAB PO PRN (00:38)
--- NOTE | 2016-11-11 00:40 | RADRPT ---
PROCEDURE: CT Chest without contrast. CLINICAL INDICATION: Evaluate lung tony, rule out pulmonary fibrosis TECHNIQUE: CT scan of the chest without contrast was performed on a multidetector high-resolution CT scanner. Coronal and sagittal reformatted images were obtained from the axial source images. The total exam CTDI equals 14.71 mGy and the total exam DLP equals 509.67 mGy-cm. One or more the following dose reduction techniques were utilized: Automated exposure control, adjus tment of the mA and / or kV according to patient's size, or use of iterative reconstruction techniqu e. COMPARISON: Chest x-ray of 11/07/2016 and CTA chest of 12/14/2015 FINDINGS: Severe centrilobular and to a lesser extent paraseptal emphysema is again seen. Scattered linear at electasis/fibrosis is seen in the lungs. Mild cylindrical bronchiectasis is again seen in the right middle lobe medially and inferiorly. No significant appearing interstitial lung fibrotic changes a re seen. Mild peribronchial wall thickening suggestive of chronic bronchitis is again seen. The pr eviously seen "ground-glass" opacity in the left upper lung lobe is no longer seen. No pleural effu darek is seen. Atherosclerotic changes including calcification again seen in thoracoabdominal aorta and great vessels. Degenerative changes at shoulders. No enlarged mediastinal lymph nodes are seen . Coronary artery calcification. Mitral annulus region calcification. No adrenal mass is seen. Ga stric surgery changes again apparent. Diffuse osteopenia. Degenerative changes in thoracic spine. Compression fracture of apparent T5 vertebral body again seen. Schmorl's nodes again seen in thoracic spine. Old right rib fractures again seen. IMPRESSION: Severe centrilobular and to a lesser extent paraseptal emphysema is again seen. Mild cylindrical br onchiectasis again seen in the right middle lobe medially and inferiorly. No significant appearing interstitial lung fibrotic changes are seen. Mild peribronchial wall thickening suggestive of chron ic bronchitis is again seen. Atherosclerosis. Please see above. RPTAT: HJES .Donald Gunderson MD, MD Date Time Electronically viewed and signed by .Donald Gunderson MD, on 11/11/2016 00:39 .S/
[2016-11-11] MEDS ORDERED: ACCU-CHEK XX SCH ×2 (02:00)
[2016-11-11] MEDS: PANTOPRAZOLE (EC) 40 MG TAB PO SCH (05:44)
[2016-11-11 07:32] LABS: ALBUMIN 3.2 g/dl (3.3-4.9); ALBUMIN/GLOBULIN RATIO 1.28; BILIRUBIN,INDIRECT 0.4 mg/dl (0-1.1); BILIRUBIN,TOTAL 0.4 mg/dl (0.2-1.3); CALCIUM 8.5 mg/dl (8.4-10.2); CREATININE 0.91 mg/dl (0.44-1.00); POTASSIUM 4.7 mmol/L (3.5-5.1); TOTAL PROTEIN 5.7 g/dl (6.1-8.1)
[2016-11-11 07:49] LABS: MAGNESIUM 1.8 mg/dl (1.7-2.5); PHOSPHORUS 3.1 mg/dl (2.5-4.9)
[2016-11-11] MEDS: SALMETEROL/FLUTICASONE 250/50 INHA INH SCH (08:51)
[2016-11-11] MEDS: metFORMIN 500 MG TAB PO SCH (08:51)
[2016-11-11] MEDS: METHYLPREDNISOLONE 125 MG INJ IV SCH (08:52)
[2016-11-11] MEDS: BUSPIRONE 5 MG TAB PO SCH (08:53)
[2016-11-11] MEDS: GABAPENTIN 100 MG CAP PO SCH (08:54)
[2016-11-11] MEDS: VALSARTAN 160 MG TAB PO SCH (08:54)
[2016-11-11] MEDS: ENOXAPARIN 40 MG/0.4 ML SYG SC SCH (08:55)
[2016-11-11] MEDS: DILTIAZEM (CD) 180 MG CAP PO SCH (08:55)
[2016-11-11] MEDS: INSULIN ASPART [NOVOLOG] 3 ML PEN SC SCH ×2 (08:56→12:40)
[2016-11-11 08:58] LABS: ABNORMAL IP MESSAGE 1; HEMATOCRIT 36.2 % (37.0-47.0); HEMOGLOBIN 11.8 g/dl (12.0-16.0); MEAN CORPUSCULAR HEMOGLOBIN 31.2 pg (29.0-33.0); MEAN CORPUSCULAR HGB CONC 32.6 g/dl (32.0-37.0); MEAN CORPUSCULAR VOLUME 95.8 fl (82.0-101.0); NUCLEATED RED BLOOD CELLS% 0.1 /100WBC (0.0-0.0); RED BLOOD COUNT 3.78 10^6/ul (4.20-5.40); RED CELL DISTRIBUTION WIDTH 15.4 % (11.5-14.5); WHITE BLOOD COUNT 14.4 10^3/ul (4.8-10.8)
[2016-11-11] MEDS ORDERED: BUMETANIDE 1 MG TAB PO SCH (09:00)
[2016-11-11] MEDS ORDERED: TIOTROPIUM 18 MCG CAPSULE INHA DEV INH SCH (09:00)
[2016-11-11 09:03] LABS: MEAN PLATELET VOLUME 13.3 fl (7.4-10.4); PLATELET COUNT 131 10^3/UL (140-415); POSITIVE DIFF @See below
[2016-11-11] MEDS: ALBUTEROL 0.083% (NEB) 2.5 MG/3 ML AMP INH SCH (09:06)
[2016-11-11 11:04] LABS: LYMPHOCYTES # 1.4 10^3/ul (0.8-2.9); MONOCYTE # 0.7 10^3/ul (0.3-0.9); MONOCYTES % (M) 5 % (0-11)
[2016-11-11] MEDS ORDERED: ALBUTEROL/IPRATROPIUM (NEB) 3 ML AMP HHN PRN (13:00)
--- NOTE | 2016-11-11 15:12 | PN ---
Date/Time of Note Date/Time of Note DATE: 11/11/16 TIME: 15:00 Assessment/Plan VTE Prophylaxis VTE Prophylaxis Intervention: LMWH Lines/Catheters IV [facility] Type (from [facility] Saline Lock Urinary Cath still in place: No Assessment/Plan Assessment/Plan 81-year-old female with: 1. Respiratory distress acute on chronic, chronic hypoxemia, oxygen dependent, per CT chest, patient with severe chronic lung disease, Emphysema/chronic bronchitis. Continue current inhalers, patient already on Advair and on Albuterol at home with nebulizer machine bid, I asked her to go up to TID, added Spiriva. Will discharge today on Medrol Dosepak and Levaquin for 4 more days. 2. Infrarenal abdominal aortic aneurysm. last February the aneurysm measured 3.7 cm. Stable. Outpatient monitoring 3. Paroxysmal atrial fibrillation, but in sinus rhythm now, rate 77 with multiple PVCs. Not on anticoagulation as an outpatient. Needs at least to be on aspirin. Need to find out for family why patient not on anticoagulation. She may have had a contraindication Continue Cardizem for rate control 4. Hypertension: Continue Valsartan and cardizem, no need for Bumex at home based on CT chest results. 5. Diabetes mellitus, apparently patient recently started on metformin. A1c 6.5 , ok to go home on metformin, up to 1000mg po bid especially while on steroids. Prophylaxis: Protonix for GI prophylaxis and Lovenox for DVT prophylaxis. Disposition: Discharge Home today. Subjective 24 Hr Interval Summary Free Text/Dictation Patient feels better and at baseline She has home O2 and a nebulizer machine at home D/c home with outpatient pulmonary referral Exam/Review of Systems Vital Signs Vitals Vital Signs Date Time Temp Pulse Resp B/P Pulse Ox O2 Delivery O2 Flow Rate FiO2 11/11/16 12:14 79 11/11/16 12:02 97.9 17 136/73 98 11/11/16 09:06 Nasal Cannula 2.0 Intake and Output 11/10/16 11/10/16 11/11/16 15:00 23:00 07:00 Intake Total 267 ml 720 ml 150 ml Balance 267 ml 720 ml 150 ml Exam Constitutional: alert, oriented, well developed Respiratory: normal air movement, other (chronic hypoxemia, O2 dependent ), wheezing (scattered, occasional ) Cardiovascular: nl pulses, regular rate and rhythm Gastrointestinal: non-tender, soft Musculoskeletal: nl extremities to inspection Extremities: normal pulses 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, nl mental status, nl speech, nl strength ( baseline ) Results Result Diagram: 11/11/1626 11/11/16 0626 Results 24 hrs Laboratory Tests Test 11/10/16 17:36 11/10/16 20:43 11/11/16 01:40 11/11/16 06:26 Bedside Glucose 280 H 290 H 177 White Blood Count 14.4 #H Red Blood Count 3.78 L Hemoglobin 11.8 L Hematocrit 36.2 L Mean Corpuscular Volume 95.8 Mean Corpuscular Hemoglobin 31.2 Mean Corpuscular Hemoglobin Concent 32.6 Red Cell Distribution Width 15.4 H Platelet Count 131 #L Mean Platelet Volume 13.3 #H Neutrophils % Segmented Neutrophils % (Manual) 83 H Band Neutrophils % (Manual) 2 Lymphocytes % Lymphocytes % (Manual) 10 L Monocytes % Monocytes % (Manual) 5 Eosinophils % Basophils % Nucleated Red Blood Cells % 0.1 H Neutrophils # (Manual) 12.0 H Band Neutrophils # 0.2 Absolute Lymphocytes (Manual) 1.4 Lymphocytes # 1.4 Monocytes # 0.7 Absolute Monocytes (Manual) 0.7 Eosinophils # Basophils # Nucleated Red Blood Cells # Sodium Level 141 Potassium Level 4.7 Chloride Level 92 L Carbon Dioxide Level 37 H Anion Gap 17 H Blood Urea Nitrogen 36 H Creatinine 0.91 Glucose Level 149 Hemoglobin A1c 6.5 H Calcium Level 8.5 Phosphorus Level 3.1 Magnesium Level 1.8 Total Bilirubin 0.4 Direct Bilirubin 0.00 Indirect Bilirubin 0.4 Aspartate Amino Transf (AST/SGOT) 20 Alanine Aminotransferase (ALT/SGPT) 29 Alkaline Phosphatase 87 Total Protein 5.7 L Albumin 3.2 L Globulin 2.50 Albumin/Globulin Ratio 1.28 Test 11/11/16 08:29 11/11/16 12:28 Bedside Glucose 167 193 Medications Medications Current Medications Salmeterol Xinafoate/ Fluticasone (Advair 250/50 Diskus) 1 inh BID INH Last administered on 11/11/16 08:51; Admin Dose 1 INH; Start 11/08/16 at 09:00 Montelukast Sodium (Singulair) 10 mg HS PO Last administered on 11/10/16 20:41 ; Admin Dose 10 MG; Start 11/08/16 at 21:00 Atorvastatin Calcium (Lipitor) 20 mg DAILY@21 PO Last administered on 20:41; Admin Dose 20 MG; Start 11/08/16 at 21:00 Trazodone HCl (Desyrel) 50 mg HS PO Last administered on 11/10/16 20:41; Admin Dose 50 MG; Start 11/08/16 at 21:00 Buspirone HCl (Buspar) 5 mg BID PO Last administered on 11/11/16 08:53; Admin Dose 5 MG; Start 11/08/16 at 09:00 Diltiazem HCl (Cardizem Cd) 180 mg DAILY PO Last administered on 11/11/16 08: 55; Admin Dose 180 MG; Start 11/09/16 at 09:00 Gabapentin (Neurontin) 100 mg DAILY PO Last administered on 11/11/16 08:54; Admin Dose 100 MG; Start 11/09/16 at 09:00 Acetaminophen/ Hydrocodone Bitart ([place] (5/325)) 1 tab Q8H PRN PO moderate to severe pain Last administered on 11/11/16 00:38; Admin Dose 1 TAB; Start at 13:00 Mirtazapine (Remeron) 15 mg HS PO Last administered on 11/10/16 22:39; Admin Dose 15 MG; Start 11/08/16 at 21:00 Valsartan (Diovan) 160 mg DAILY PO Last administered on 11/11/16 08:54; Admin Dose 160 MG; Start 11/09/16 at 09:00 Pantoprazole (Protonix Tab) 40 mg BID@06,18 PO Last administered on 11/11/16 05:44; Admin Dose 40 MG; Start 11/08/16 at 18:00 Enoxaparin Sodium (Lovenox) 40 mg DAILY SC Last administered on 11/11/16 08:55 ; Admin Dose 40 MG; Start 11/08/16 at 14:30 Methylprednisolone Sodium Succinate (Solu-Medrol) 60 mg QAM IV Last administered on 11/11/16 08:52; Admin Dose 60 MG; Start 11/10/16 at 09:00 Diagnostic Test (Pha) (Accu-Chek) 1 ea 02 XX Last administered on 11/11/16 01: 42; Admin Dose 1 EA; Start 11/11/16 at 02:00 Bumetanide (Bumex) 1 mg DAILY PO Last administered on 11/11/16 08:53; Admin Dose 1 MG; Start 11/11/16 at 09:00 Tiotropium [place] (Spiriva) 1 inh DAILY INH Last administered on 11/11/16 08: 52; Admin Dose 1 INH; Start 11/11/16 at 09:00 Miscellaneous Information 1 ea NOTE XX ; Start 11/10/16 at 17:30 Glucose (Glutose) 15 gm Q15M PRN PO DECREASED GLUCOSE; Start 11/10/16 at 17:30 Glucose (Glutose) 22.5 gm Q15M PRN PO DECREASED GLUCOSE; Start 11/10/16 at 17: 30 Dextrose (D50w Syringe) 25 ml Q15M PRN IV DECREASED GLUCOSE; Start 11/10/16 at 17:30 Dextrose (D50w Syringe) 50 ml Q15M PRN IV DECREASED GLUCOSE; Start 11/10/16 at 17:30 Glucagon (Glucagen) 1 mg Q15M PRN IM DECREASED GLUCOSE; Start 11/10/16 at 17:30 Glucose (Glutose) 15 gm Q15M PRN BUCCAL DECREASED GLUCOSE; Start 11/10/16 at 17 :30 Levofloxacin (Levaquin) 750 mg Q24H PO Last administered on 11/10/16 20:41; Admin Dose 750 MG; Start 11/10/16 at 18:00 JEANNA RUEDA Nov 11, 2016 15:12
--- NOTE | 2016-11-11 15:15 | PDOCDIS ---
Discharge Instructions CONDITION Patient Condition: Stable HOME CARE INSTRUCTIONS: Special Diet: carb control ACTIVITY: Activity Restrictions: Slowly Increase Activity FOLLOW UP/APPOINTMENTS Follow-up Plan Follow up with PCP within 1 week Referral to outpatient Pulmonary for Severe Emphysema and bronchitis, O2 dependent JEANNA RUEDA Nov 11, 2016 15:15
[2016-11-11] MEDS ORDERED: MED4DP PO (15:20)
[2016-11-11] MEDS ORDERED: ALBU2.5V3 HHN (15:20)
[2016-11-11] MEDS ORDERED: LEVO750T25 PO (15:20)
[2016-11-11] MEDS ORDERED: ATOR20TA65 PO (15:20)
[2016-11-11] MEDS ORDERED: TIOT18CA INH (15:20)
[2016-11-11] MEDS ORDERED: METF1000 PO (15:20)
[2016-11-11] MEDS ORDERED: ASPI-664 PO (15:20)
[2016-11-11] MEDS ORDERED: ALBUTEROL 0.083% (NEB) 2.5 MG/3 ML AMP HHN SCH (16:00)
== END 2016-11-11 16:53 | disposition home or self-care (01) | DRG 192 ==
LOC: E/R 17:33 → MS4 11-08 02:40
PROVIDERS: ADMIT Family Medicine; ATTEND Internal Medicine
DX: J44.1 Chronic obstructive pulmonary disease with (acute) exacerbation (principal); R06.00 Dyspnea, unspecified; I48.91 Unspecified atrial fibrillation; I11.0 Hypertensive heart disease with heart failure; I50.9 Heart failure, unspecified; E78.5 Hyperlipidemia, unspecified; R73.03 Prediabetes; I71.4 Abdominal aortic aneurysm, without rupture
CPT/HCPCS: 36415; 71010; 71250; 80048; 80053; 82962; 83036; 83735; 83880; 84100; 84484; 85025; 85610; 85730; 93005; 93306; 94640; 94644; 94664; 96374; 96375; J1650; J1815; J2920; J2930; J7050; J7512

== ENCOUNTER 2017-01-27 08:30 | Emergency (ER) | payer MEDICARE, OTHER ==
[~2017-01-27] VITALS: Ht 149.9 cm; Wt 67.9 kg
[~2017-01-27 08:30] MED LIST changes: -ADV25050 INH; +ALBU2.5V3 HHN; -ALBU8.5H3 INH; +ASPI-664 PO; +BUSP5TAB2 PO; -BUSP5TAB20 PO; -DILT180C75 PO; +FLUT1BLS INHALATION; +GABA100C14 PO; +HYDR-906 PO; +LEVO750T25 PO; +MED4DP PO; +METF1000 PO; -METF500T PO; +MIRT15TA5 PO; -NYST15PO4 TOP; -TRAZ50TA18 PO; -TRIA15CR55 TOP; +[UNRECOGNIZED DRUG - CODE] PO
[2017-01-27 08:37] VITALS: Ht 149.9 cm; Wt 67.9 kg
[2017-01-27] MEDS ORDERED: METHYLPREDNISOLONE 125 MG INJ IV STA (09:04)
[2017-01-27] MEDS ORDERED: IPRATROPIUM (NEB) 0.5 MG/2.5 ML AMP NEB STA ×2 (09:04→12:42)
[2017-01-27] MEDS ORDERED: ALBUTEROL 0.5% (NEB) 2.5 MG/0.5 ML AMP NEB STA (09:04)
--- NOTE | 2017-01-27 09:37 | RADRPT ---
PROCEDURE: XR Chest. CLINICAL INDICATION: Chest pain. TECHNIQUE: Single frontal view. COMPARISON: 11/07/2016. FINDINGS: The lungs are mildly hyperinflated but otherwise clear. The heart is mildly enlarged. There is calcification in the aorta consistent with atherosclerosis. There is no pleural effusion. There is no pneumothorax. IMPRESSION: 1. Mild hyperinflation. 2. Otherwise clear lungs. 3. Mild cardiomegaly. 4. Atherosclerosis. 5. No change from 11/07/2016. RPTAT: QQ .Dimitrios Delarosa MD, MD Date Time Electronically viewed and signed by .Dimitrios Delarosa MD, MD on 01/27/2017 09:36 .R/
[2017-01-27 10:03] LABS: BASOPHILS % 0.4 % (0.0-2.0); EOSINOPHILS # 0.4 10^3/ul (0.0-0.5); EOSINOPHILS % 3.7 % (0.0-7.0); HEMATOCRIT 35.5 % (37.0-47.0); HEMOGLOBIN 11.2 g/dl (12.0-16.0); LYMPHOCYTES # 1.9 10^3/ul (0.8-2.9); LYMPHOCYTES % 19.8 % (15.0-51.0); MEAN CORPUSCULAR HEMOGLOBIN 30.6 pg (29.0-33.0); MEAN CORPUSCULAR HGB CONC 31.5 g/dl (32.0-37.0); MEAN PLATELET VOLUME 11.2 fl (7.4-10.4); MONOCYTE # 0.6 10^3/ul (0.3-0.9); MONOCYTES % 5.9 % (0.0-11.0); NEUTROPHIL # 6.7 10^3/ul (1.6-7.5); NEUTROPHILS % 69.5 % (39.0-77.0); PLATELET COUNT 232 10^3/UL (140-415); RED BLOOD COUNT 3.66 10^6/ul (4.20-5.40); RED CELL DISTRIBUTION WIDTH 14.6 % (11.5-14.5); WHITE BLOOD COUNT 9.6 10^3/ul (4.8-10.8)
[2017-01-27 10:23] LABS: BLOOD UREA NITROGEN 18 mg/dl (7-20); CALCIUM 9.1 mg/dl (8.4-10.2); CHLORIDE 93 mmol/L (97-110); CREATININE 0.92 mg/dl (0.44-1.00); GLUCOSE 110 mg/dl (70-220); POTASSIUM 4.4 mmol/L (3.5-5.1); SODIUM 142 mmol/L (135-144)
[2017-01-27] MEDS ORDERED: ASPI-664 PO (10:23)
[2017-01-27] MEDS ORDERED: ATOR20TA38 PO (10:24)
[2017-01-27] MEDS ORDERED: FURO20TA3 PO (10:24)
[2017-01-27 10:36] LABS: ANION GAP 10 (8-16); TROPONIN-I < 0.012 ng/ml (0.00-0.12)
[2017-01-27 10:37] LABS: CARBON DIOXIDE 43 mmol/L (21-31)
[2017-01-27 11:09] LABS: AADO2 Arterial 46.5 mmHg (7.0-24.0); Allen Test ACCEPTAB; Arterial Base Excess 10.8 mmol/L (-3.0-3); Arterial COHb 0.4 % (0.0-3.0); Arterial Fraction of Oxyhgb 89.8 % (93.0-99.0); Arterial HCO3 39.2 mmol/L (22.0-26.0); Arterial MetHb 0.1 % (0.0-1.5); MODE NASAL CANNULA
[2017-01-27] MEDS ORDERED: ALBUTEROL 0.083% (NEB) 2.5 MG/3 ML AMP NEB STA (12:42)
--- NOTE | 2017-01-27 12:42 | ERD ---
ER Documentation Chief Complaint Chief Complaint SOB with "mild chest pain" x last night HPI This is an 81-year-old female with a history of hypertension, hyperlipidemia, COPD who is on home oxygen who presents to the emergency room today for evaluation of shortness of breath. This patient states that she has been short of breath for the past 24 hours. She states that she has tried her breathing machine at home with only minimal relief. The patient's daughter is with the patient is a she was concerned because the patient looked uncomfortable and brought the patient to the ER for evaluation. She states that normally breathing treatments to help her shortness of breath however this time they have not. Patient denies any active chest pain or palpitations at this time ROS All systems reviewed and are negative except as per history of present illness. Medications Home Meds Active Scripts Tiotropium [place]* (Spiriva*) 18 Mcg Cap.w.dev, 1 INH INH DAILY for 30 Days, 3 Refills Prov:JEANNA RUEDA 11/11/16 Montelukast Sodium* (Montelukast Sodium*) 10 Mg Tablet, 10 MG PO HS for 30 Days , TAB Prov:CARIE MURDOCK 03/17/16 Reported Medications Furosemide* (Furosemide*) 20 Mg Tablet, 20 MG PO DAILY, #60 TAB 01/27/17 Atorvastatin Calcium* (Atorvastatin Calcium*) 20 Mg Tablet, 20 MG PO QHS, #30 TAB 01/27/17 Aspirin* (Aspirin* EC) 81 Mg Tablet.dr, 81 MG PO DAILY, TAB 01/27/17 Fluticasone/Vilanterol (Breo Ellipta 200-25 Mcg INH) 1 Each Blst.w.dev, 1 PUFF INHALATION DAILY, #1 INHALER 11/07/16 Valsartan* (Diovan*) 160 Mg Tablet, 160 MG PO DAILY, TAB 11/07/16 Mirtazapine* (Mirtazapine*) 15 Mg Tablet, 15 MG PO HS, TAB 11/07/16 Gabapentin* (Gabapentin*) 100 Mg Capsule, 100 MG PO DAILY, #90 CAP 11/07/16 Diltiazem Hcl* (Cartia XT*) 180 Mg Cap.sr.24h, 180 MG PO DAILY, #30 CAP 11/07/16 Buspirone Hcl* (Buspirone Hcl*) 5 Mg Tab, 5 MG PO BID Y for PRN, TAB 12/14/15 Omeprazole* (Omeprazole*) 40 Mg Capsule.dr, 40 MG PO AC BREAKFAST, #30 CAP 06/28/15 Discontinued Reported Medications Hydrocodone/Acetaminophen (Dyess 5-325 Tablet) 1 Each Tablet, 1 EACH PO Q8H, TAB 11/07/16 Discontinued Scripts Atorvastatin Calcium (Atorvastatin Calcium) 20 Mg Tablet, 20 MG PO DAILY@21 for 30 Days, TAB 3 Refills Prov:JEANNA RUEDA 11/11/16 Aspirin* (Aspirin* (EC)) 81 Mg Tablet.dr, 81 MG PO DAILY for 30 Days, TAB 3 Refills Prov:JEANNA RUEDA 11/11/16 Methylprednisolone* (Medrol* DOSE PACK) 4 Mg/Dose-Pack Tab.ds.pk, 4 MG PO . DIRECTED, #1 PACKET Prov:JEANNA RUEDA 11/11/16 Metformin Hcl* (Metformin Hcl*) 1,000 Mg Tablet, 1000 MG PO WITH BREAKFAST DINNE , #60 TAB 3 Refills Prov:JEANNA RUEDA 11/11/16 Albuterol Sulfate* (Albuterol Sulfate* Neb) 0.083%-3 Ml Neb, 2.5 MG HHN Q8H RESP THERAPY for 30 Days, 3 Refills Prov:JEANNA RUEDA 11/11/16 Levofloxacin* (Levaquin*) 750 Mg Tablet, 750 MG PO Q24H for 4 Days, TAB Prov:JEANNA RUEDA 11/11/16 Furosemide* (Lasix*) 20 Mg Tablet, 20 MG PO DAILY, #30 TAB Prov:CARIE MURDOCK 03/17/16 Allergies Allergies: Coded Allergies: No Known Allergy (Unverified , 01/27/17) PMhx/Soc History of Surgery: Yes (Hx: Pancreatic surgery) Anesthesia Reaction: No Hx Neurological Disorder: No Hx Respiratory Disorders: Yes (asthma, COPD) Hx Cardiac Disorders: Yes (HYPERTENSION, HYPERLIPIDEMIA) Hx Psychiatric Problems: Yes (anxiety ) Hx Miscellaneous Medical Probl: Yes (DM) Hx Alcohol Use: No Hx Substance Use: No Hx Tobacco Use: Yes (quit 10 years ago) Smoking Status: Former smoker Physical Exam Vitals Vital Signs Date Time Temp Pulse Resp B/P Pulse Ox O2 Delivery O2 Flow Rate FiO2 11/14/17 09:20 71 18 97 Nasal Cannula 2.0 01/27/17 09:13 Nasal Cannula 2 01/27/17 08:37 98.7 72 22 131/92 100 Physical Exam INITIAL VITAL SIGNS: Reviewed by me GENERAL: The patient is well developed and appropriate for usual state of health in no apparent distress HEENT: Pupils equal, round, and reactive to light. EOMI. There is no scleral icterus. NECK: C-spine is soft and supple, there is no meningismus. There is no cervical lymphadenopathy. LUNGS: There is bilaterally with end expiratory wheezing HEART: Regular rate and rhythm, no murmurs, clicks, rubs or gallops. ABDOMEN: Soft, non-tender, non-distended. There are bowel sounds in all four quadrants. No rebound or guarding. EXTREMITIES: There is no peripheral cyanosis or edema. No focal swelling or erythema. NEUROLOGICAL: The patient moves all four extremities with 5/5 strength. Cranial nerves II - XII are intact. Normal gait. Alert and oriented SKIN: There is no apparent rash or petechiae. HEME/LYMPHATIC: There is no evidence of excessive bruising or lymphedema. PSYCHIATRIC: The patient does not appear anxious or depressed. Result Diagram: 01/27/17 0945 01/27/17 0945 Results 24 hrs Laboratory Tests Test 01/27/17 09:45 01/27/17 09:48 01/27/17 10:37 White Blood Count 9.610^3/ul Red Blood Count 3.6610^6/ul Hemoglobin 11.2g/dl Hematocrit 35.5% Mean Corpuscular Volume 97.0fl Mean Corpuscular Hemoglobin 30.6pg Mean Corpuscular Hemoglobin Concent 31.5g/dl Red Cell Distribution Width 14.6% Platelet Count 66413^3/UL Mean Platelet Volume 11.2fl Neutrophils % 69.5% Lymphocytes % 19.8% Monocytes % 5.9% Eosinophils % 3.7% Basophils % 0.4% Nucleated Red Blood Cells % 0.0/100WBC Neutrophils # 6.710^3/ul Lymphocytes # 1.910^3/ul Monocytes # 0.610^3/ul Eosinophils # 0.410^3/ul Basophils # 0.010^3/ul Nucleated Red Blood Cells # 0.010^3/ul Sodium Level 142mmol/L Potassium Level 4.4mmol/L Chloride Level 93mmol/L Carbon Dioxide Level 43mmol/L Anion Gap 10 Blood Urea Nitrogen 18mg/dl Creatinine 0.92mg/dl Glucose Level 110mg/dl Calcium Level 9.1mg/dl Troponin I < 0.012ng/ml Bedside Glucose 127mg/dL Blood Gas Specimen Source Blood arterial Arterial Blood Date Drawn 01/27/2017 11:00:56 AM Arterial Blood pH (Temp corrected) 7.344 Arterial Blood pCO2 (Temp correct) 73.7mmhg Arterial Blood pO2 (Temp corrected) 58.9mmHG Arterial Blood HCO3 39.2mmol/L Arterial Blood Base Excess 10.8mmol/L Arterial Blood Oxygen Saturation 90.3mmHG Kleber Test ACCEPTAB Arterial Blood Gas Puncture Site Right Radial Arterial Blood Carboxyhemoglobin 0.4% Arterial Blood Methemoglobin 0.1% Blood Gas A-a O2 Differential 46.5mmHg Oxyhemoglobin Percent 89.8% Total Hemoglobin 12.0g/dl Blood Gas Temperature 37.0C Blood Gas Modality NASAL CANNULA FiO2 27.0% Blood Gas Notified Whom JLD Blood Gas Notified Time 01/27/2017 11:09:35 AM Current Medications Medications (Trade) Dose Ordered Sig/Liza Route PRN Reason Start Time Stop Time Status Last Admin Dose Admin Albuterol (Proventil 0.5% (Neb)) 10 mg ONCE STAT NEB 01/27/17 09:04 01/27/17 09:06 DC 01/27/17 09:20 Ipratropium [place] (Atrovent 0.02% (Neb)) 0.5 mg ONCE STAT NEB 01/27/17 09:04 01/27/17 09:06 DC 01/27/17 09:20 Methylprednisolone Sodium Succinate (Solu-Medrol) 125 mg ONCE STAT IV 01/27/17 09:04 01/27/17 09:06 DC 01/27/17 09:57 Procedures/MDM Chest X-ray 1V Interpreted by me: Soft Tissue: No acute abnormalities Bones: No acute abnormalities Mediastinum/Cardiac Silhouette/Lungs: Mild hyperinflation EKG: Rate/Rhythm: [Normal Sinus Rhythm] QRS, ST, T-waves: [No changes consistent w/ acute ischemia] Impression: [No evidence of ischemia or arrhythmia] This 81-year-old female presents to the ER for evaluation of shortness of breath. When I evaluated this patient she was hypoxic with a pulse ox of 83% on 2 L nasal cannula. She did have end expiratory wheezing and was given a breathing treatment with albuterol, Atrovent. She was given 125 mg of Solu- Medrol. Chest x-ray was obtained which does not show any acute infection. This patient was still complaining of mild shortness of breath after the first breathing treatment and subsequently given a second breathing treatment. Her pulse oxygen level is now 92% on 3 L. Given this patient's age and presenting hypoxia the patient will be admitted. The patient will be transferred to [facility] as she is capitated there given her insurance. This patient was accepted by Dr. Castro and is stable for transfer at this time. Critical Care: Excluding all billable procedures Time: 36 minutes Treatments/Evaluations: Close monitoring and treatment of unstable vital signs, cardiorespiratory, and neurologic status, while maintaining tight balance of fluid, respiratory, and cardiac interventions. Departure Diagnosis: Primary Impression: Acute respiratory failure with hypoxia Additional Impressions: COPD with exacerbation Hypercapnia Normocytic anemia Condition: Stable VALENTIN JONES DO Jan 27, 2017 12:42
[2017-01-27 17:24] LABS: CREATINE KINASE 22 IU/L (23-200)
[2017-01-27 17:26] VITALS: BP 128/66; PULSE 83; RESP 19; TEMP 98.7
[2017-01-27 17:37] LABS: CK-MB 0.68 ng/ml (0.0-2.4)
[2017-01-27 17:46] LABS: TROPONIN-I < 0.012 ng/ml (0.00-0.12)
== END 2017-01-27 18:00 | disposition short-term general hospital (02) ==
LOC: E/R 08:30
DX: J96.02 Acute respiratory failure with hypercapnia (principal); J44.1 Chronic obstructive pulmonary disease with (acute) exacerbation; D64.9 Anemia, unspecified; J45.909 Unspecified asthma, uncomplicated; I10 Essential (primary) hypertension; E11.9 Type 2 diabetes mellitus without complications; Z79.84 Long term (current) use of oral hypoglycemic drugs; Z79.82 Long term (current) use of aspirin; Z87.891 Personal history of nicotine dependence
CPT/HCPCS: 36415; 36600; 71010; 80048; 82550; 82553; 82803; 82962; 84484; 85025; 93005; 94644; 94645; 96374; 99291; J2930